=== PATIENT | male | born 1980 | race Caucasian/White ===

== ENCOUNTER 2019-03-02 02:55 | Inpatient (IN) | payer MEDICAID, OTHER ==
[2019-03-02] MEDS ORDERED: Metoclopramide IV* 5 MG/ML 2 ML VIAL IV SLOW PU ONE (04:37)
[2019-03-02] MEDS ORDERED: HYDROmorphone INJ1* 1 MG/ML SYRINGE IV SLOW PU ONE ×2 (04:37→06:55)
[2019-03-02] MEDS ORDERED: NS 0.9% 1000 ML** 1,000 ML IV ONE (04:38)
[2019-03-02] MEDS ORDERED: Thiamine IV* 100 MG, Folic Acid IV* 1 MG, Multiple Vitamin IV ADULT* 10 ML in NS 0.9% 1... IV ONE (04:38)
[2019-03-02 04:57] LABS: ABS Basophils 0.1 10^3/ul (0-0.2); ABS Lymphocytes 1.1 10^3/ul (1.0-4.8); ABS Monocytes 0.8 10^3/ul (0-0.8); ABS Neutrophils 15.8 10^3/ul (1.5-7.7); Eosinophil % 0.3 %; Hematocrit 45 % (42-52); Hemoglobin 15.5 g/dL (14.0-18.0); Lymphocyte % 6.1 %; Mean Corpuscular HGB Conc 34 g/dL (31-36); Mean Corpuscular Hemoglobin 34 pg (27-31); Mean Corpuscular Volume 101 fL (80-94); Mean Platelet Volume 8.1 fL (7.4-10.4); Platelet Count 225 10^3/uL (150-450); Red Blood Count 4.51 10^6 /uL (4.18-5.48); Red Cell Distribution Width 17 % (10.5-15); White Blood Count 17.9 10^3/uL (3.5-10.8)
[2019-03-02 05:04] LABS: INR 0.99 (0.82-1.09)
[2019-03-02 05:25] LABS: Albumin 4.5 g/dL (3.2-5.2); Albumin/Globulin Ratio 1.5 (1-3); BUN/Creatinine Ratio 27.3 (8-20); C Reactive Protein 7.14 mg/L (<8.01); Calcium 9.9 mg/dL (8.6-10.3); EGFR African American 90.6 (>60); EGFR Non-African American 74.9 (>60); Globulin 3.1 g/dL (2-4); Magnesium 1.1 mg/dL (1.9-2.7); Potassium 4.1 mmol/L (3.5-5.0); Total Protein 7.6 g/dL (6.4-8.9)
[2019-03-02] MEDS ORDERED: LORazepam INJ* 2 MG/ML 1 ML VIAL IV PUSH ONE ×2 (05:44→07:48)
[2019-03-02] MEDS ORDERED: Lorazepam PYXIS KEY PRN ×3 (05:44→09:01)
[2019-03-02] MEDS ORDERED: Lorazepam PYXIS KEY ONE (05:46)
[2019-03-02] MEDS ORDERED: Iohexol 300* (CONTRAST) 10 ML SDV IV ONE (06:01)
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
--- NOTE | 2019-03-02 07:10 | ED ---
Progress - Progress Note Progress Note: Receiving sign out from Dr. Young at shift change, pending CT A/P. Pt's condition has been stable. CT A/P: Findings suggestive of acute pancreatitis. ED physician reviewed radiology report. Pt is admitted to Dr. Paredes with a final dx of pancreatitis. Re-Evaluation - Re-Evaluation First Eval Re-Evaluation Time: 07:49 Change: Unchanged Comment: Pt is mildly tremulous. Discussed CT results. Course/Dx - Course Course Of Treatment: Pt is a 38 y/o male who presents to the ED c/o abdominal pain. Pt's condition has been stable. CT A/P revealed acute pancreatitis. He will be admitted to Dr. Paredes with a final dx of pancreatitis. I discussed results with patient. The patient agrees with this plan. - Diagnoses Provider Diagnoses: Pancreatitis - Provider Notifications Discussed Care Of Patient With: Sharona Paredes Time Discussed With Above Provider: 08:08 Instructed by Provider To: Admit As Inpatient Discharge - Sign-Out/Discharge Documenting (check all that apply): Patient Departure - Admit, Receiving Sign- Out Receiving patient FROM: Lavelle Young Patient Received Moderate/Deep Sedation with Procedure: No - Discharge Plan Condition: Stable Disposition: ADMITTED TO [facility] - Billing Disposition and Condition Condition: STABLE Disposition: Admitted to [facility] - Attestation Statements Document Initiated by Vivianeibe: Yes Documenting Scribe: Edie Dunbar Provider For Whom Scribe is Documenting (Include Credential): Yadira Abreu MD Scribe Attestation: IEdie, scribed for Yadira Abreu MD on 03/02/19 at 1141. Scribe Documentation Reviewed: Yes Provider Attestation: The documentation as recorded by the Edie dias accurately reflects the service I personally performed and the decisions made by me, Yadira Abreu MD Status of Scribe Document: Viewed
[2019-03-02] MEDS ORDERED: NS 0.9% 1000 ML** 1,000 ML IV SCH (09:00)
[2019-03-02] MEDS ORDERED: Magnesium Sulf 4 GM/100 ML IV* 4,000 MG/100 ML BAG IVPB ONE (09:04)
[2019-03-02] MEDS ORDERED: Albuterol HFA INHALER* 8 gm MDI INH PRN (09:11)
[2019-03-02] MEDS ORDERED: hydrALAZINE IV* 20 MG/ML VIAL IV SLOW PU PRN (09:12)
[2019-03-02] MEDS: Pantoprazole IV* 40 MG IV SCH (10:07)
[2019-03-02] MEDS: NS 0.9% 1000 ML** 1,000 ML IV SCH ×2 (10:07→20:00)
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
[2019-03-02] MEDS: LORazepam INJ* 2 MG/ML 1 ML VIAL IV PUSH SCH ×4 (13:14→23:10)
[2019-03-02] MEDS: PROCHLORPERAZINE INJ 5 MG/ML 2 ML VIAL IV PRN ×2 (13:20→20:00)
[2019-03-02] MEDS: Morphine INJ* 2 MG/ML 1 ML SYRINGE (TWO MG - NEW SYRINGE VERSION) IV PRN ×2 (17:22→23:50)
[2019-03-03] MEDS: PROCHLORPERAZINE INJ 5 MG/ML 2 ML VIAL IV PRN (02:53)
[2019-03-03] MEDS: NS 0.9% 1000 ML** 1,000 ML IV SCH ×3 (02:56→21:39)
[2019-03-03] MEDS: LORazepam INJ* 2 MG/ML 1 ML VIAL IV PUSH SCH ×5 (04:41→22:01)
[2019-03-03 07:05] LABS: Albumin 3.4 g/dL (3.2-5.2); Calcium 7.9 mg/dL (8.6-10.3); Potassium 4.6 mmol/L (3.5-5.0)
[2019-03-03 07:11] LABS: Albumin/Globulin Ratio 1.4 (1-3); EGFR African American 118.8 (>60); EGFR Non-African American 98.2 (>60); Globulin 2.4 g/dL (2-4); Total Protein 5.8 g/dL (6.4-8.9)
[2019-03-03] MEDS: Morphine 4 MG/ML VIAL (1 ml) 4 MG/ML VIAL IV PRN ×4 (07:18→23:18)
[2019-03-03 07:26] LABS: ABS Eosinophils 0.1 10^3/ul (0-0.6); ABS Lymphocytes 0.8 10^3/ul (1.0-4.8); ABS Monocytes 1.1 10^3/ul (0-0.8); ABS Neutrophils 18.9 10^3/ul (1.5-7.7); Eosinophil % 0.3 %; Hematocrit 41 % (42-52); Hemoglobin 13.7 g/dL (14.0-18.0); Mean Corpuscular HGB Conc 34 g/dL (31-36); Mean Corpuscular Hemoglobin 34 pg (27-31); Mean Corpuscular Volume 100 fL (80-94); Mean Platelet Volume 8.2 fL (7.4-10.4); Platelet Count 120 10^3/uL (150-450); Red Blood Count 4.04 10^6 /uL (4.18-5.48); Red Cell Distribution Width 17 % (10.5-15); White Blood Count 20.9 10^3/uL (3.5-10.8)
[2019-03-03] MEDS: Pantoprazole IV* 40 MG IV SCH (09:46)
[2019-03-03] MEDS: Thiamine IV 100 MG, Folic Acid IV* 1 MG, Multiple Vitamin IV ADULT* 10 ML in NS 0.9% 10... IV SCH (09:47)
--- NOTE | 2019-03-03 16:49 | PN ---
Subjective Date of Service: 03/03/19 Interval History: Still complaining of increase abdominal pain. still requiring Ativan for withdrawal and morphine for Pain Past Medical History: Unchanged from Admission Objective Active Medications: Albuterol (Ventolin Hfa Inhaler*) 2 puff INH Q4H PRN PRN Reason: SOB/WHEEZING Hydralazine HCl (Apresoline Iv*) 5 mg IV SLOW PU Q6H PRN PRN Reason: HTN Thiamine HCl 100 mg/ Folic Acid 1 mg/ Multivitamins 10 ml / Sodium Chloride 1, 011.2 mls @ 249.013 mls/hr IV DAILY [facility] Last Admin: 03/03/19 09:47 Dose: 249.013 mls/hr Sodium Chloride (Ns 0.9% 1000 Ml) 1,000 mls @ 175 mls/hr IV PER RATE [facility] Last Admin: 03/03/19 09:47 Dose: 175 mls/hr Lorazepam (Ativan Inj*) 0.5 mg IV PUSH Q6H [facility] Last Admin: 03/03/19 15:53 Dose: 0.5 mg Lorazepam (Ativan Inj*) 0 - 3 mg IV PUSH .PER [facility] PROTOCOL [facility]; Protocol Last Admin: 03/02/19 20:00 Dose: 1.5 mg Miscellaneous (Ativan Pyxis Albarran) 1 ea N/A .ATIVAN IV ALBARRAN PRN PRN Reason: PYXIS ALBARRAN Miscellaneous (Ativan Pyxis Albarran) 1 ea N/A .ATIVAN IV ALBARRAN PRN PRN Reason: PYXIS ALBARRAN Miscellaneous (Ativan Pyxis Albarran) 1 ea N/A .ATIVAN IV ALBARRAN PRN PRN Reason: PYXIS ALBARRAN Morphine Sulfate (Morphine 4 Mg/Ml Vial (1 Ml)) 2 mg IV Q4H PRN PRN Reason: PAIN - MILD Last Admin: 03/03/19 12:26 Dose: 2 mg Pantoprazole Sodium (Protonix Iv*) 40 mg IV DAILY [facility] Last Admin: 03/03/19 09:46 Dose: 40 mg Prochlorperazine Edisylate (Compazine Inj*) 5 mg IV Q6H PRN PRN Reason: NAUSEA/VOMITING Last Admin: 03/03/19 02:53 Dose: 5 mg Vital Signs - 8 hr 03/03/19 03/03/19 03/03/19 09:05 09:47 12:26 Temperature Pulse Rate Respiratory 20 16 16 Rate Blood Pressure (mmHg) O2 Sat by Pulse Oximetry 03/03/19 03/03/19 03/03/19 13:22 15:45 15:53 Temperature 98.5 F Pulse Rate 101 Respiratory 16 18 18 Rate Blood Pressure 154/96 (mmHg) O2 Sat by Pulse 97 Oximetry Oxygen Devices in Use Now: None Appearance: awake, resting in mild to moderate distress from pain Eyes: No Scleral Icterus, - - EOMI Ears/Nose/Mouth/Throat: NL Teeth, Lips, Gums, - - dry oral mucosa Neck: NL Appearance and Movements; NL JVP, Trachea Midline Respiratory: Symmetrical Chest Expansion and Respiratory Effort, Clear to Auscultation Cardiovascular: NL Sounds; No Murmurs; No JVD, - - tacchyardia Abdominal: - - diminished bowel sounds. tender rigid Extremities: No Edema Skin: No Rash or Ulcers Neurological: Alert and Oriented x 3 Result Diagrams: 03/03/19 07:16 03/03/19 05:19 Additional Lab and Data: Lab Results 03/02/19 03/02/19 03/02/19 Range/Units 04:49 04:49 04:49 WBC 17.9 H (3.5-10.8) 10^3/uL RBC 4.51 (4.18-5.48) 10^6 /uL Hgb 15.5 (14.0-18.0) g/dL Hct 45 (42-52) % MCV 101 H (80-94) fL MCH 34 H (27-31) pg MCHC 34 (31-36) g/dL RDW 17 H (10.5-15) % Plt Count 225 (150-450) 10^3/uL MPV 8.1 (7.4-10.4) fL Neut % (Auto) 88.5 % Lymph % (Auto) 6.1 % [place] % (Auto) 4.7 % Eos % (Auto) 0.3 % Baso % (Auto) 0.4 % Absolute Neuts (auto) 15.8 H (1.5-7.7) 10^3/ul Absolute Lymphs (auto) 1.1 (1.0-4.8) 10^3/ul Absolute Monos (auto) 0.8 (0-0.8) 10^3/ul Absolute Eos (auto) 0.0 (0-0.6) 10^3/ul Absolute Basos (auto) 0.1 (0-0.2) 10^3/ul Absolute Nucleated RBC 0.0 10^3/ul Nucleated RBC % 0.0 INR (Anticoag Therapy) 0.99 (0.82-1.09) APTT 27.0 (26.0-36.3) seconds Sodium 134 L (135-145) mmol/L Potassium 4.1 (3.5-5.0) mmol/L Chloride 97 L (101-111) mmol/L Carbon Dioxide 23 (22-32) mmol/L Anion Gap 14 H (2-11) mmol/L BUN 30 H (6-24) mg/dL Creatinine 1.10 (0.67-1.17) mg/dL Est GFR ( Amer) 90.6 (>60) Est GFR (Non-Af Amer) 74.9 (>60) BUN/Creatinine Ratio 27.3 H (8-20) Glucose 118 H (70-100) mg/dL Calcium 9.9 (8.6-10.3) mg/dL Magnesium 1.1 L (1.9-2.7) mg/dL Total Bilirubin 1.00 (0.2-1.0) mg/dL AST 141 H (13-39) U/L ALT 115 H (7-52) U/L Alkaline Phosphatase 102 (34-104) U/L C-Reactive Protein 7.14 (<8.01) mg/L Total Protein 7.6 (6.4-8.9) g/dL Albumin 4.5 (3.2-5.2) g/dL Globulin 3.1 (2-4) g/dL Albumin/Globulin Ratio 1.5 (1-3) Amylase 1210 H (29-103) U/L Lipase 4741 H (11.0-82.0) U/L Assess/Plan/Problems-Billing Assessment: 38 y/o male admitted for ETOH induced pancreatitis, [facility] - Patient Problems (1) Pancreatitis Current Visit: No Status: Acute Code(s): K85.90 - ACUTE PANCREATITIS WITHOUT NECROSIS OR INFECTION, UNSP SNOMED Code(s): 82280984 Comment: - Acute due to EOTH abuse - Lipase and amylase elevated - continue to trend down - continue NS 175 ml/hr - Keep NPO (2) ETOH abuse Current Visit: No Status: Acute Code(s): F10.10 - ALCOHOL ABUSE, UNCOMPLICATED SNOMED Code(s): 28981849 Comment: - Continue [facility] protocol - patient was advised not to drink any alcohol - social work consult (3) GERD (gastroesophageal reflux disease) Current Visit: No Status: Acute Code(s): K21.9 - GASTRO-ESOPHAGEAL REFLUX DISEASE WITHOUT ESOPHAGITIS SNOMED Code(s): 519523434 Comment: - continue PPI 40 mg IV daily (4) HTN (hypertension) Current Visit: No Status: Acute Code(s): I10 - ESSENTIAL (PRIMARY) HYPERTENSION SNOMED Code(s): 45774729 Comment: - hold home lisinopril/HCTZ - blood pressure wnls. Continue to monitor - Hydralazine PRN IV (5) DVT prophylaxis Current Visit: No Status: Acute Code(s): YCO0725 - SNOMED Code(s): 879800310 Comment: - Will place on lovenox 40 mg SQ daily
[2019-03-03] MEDS: Enoxaparin(*) 40 MG/0.4 ML SYR SUBCUT SCH (17:43)
[2019-03-04] MEDS: Morphine 4 MG/ML VIAL (1 ml) 4 MG/ML VIAL IV PRN ×5 (02:34→19:35)
[2019-03-04] MEDS: LORazepam INJ* 2 MG/ML 1 ML VIAL IV PUSH SCH ×4 (03:31→15:46)
[2019-03-04] MEDS: NS 0.9% 1000 ML** 1,000 ML IV SCH ×2 (03:55→12:18)
[2019-03-04 05:37] LABS: Urine Appearance Clear; Urine Bacteria Absent (Absent); Urine Bilirubin Negative (Negative); Urine Blood Negative (Negative); Urine Color Amber; Urine Glucose Negative (Negative); Urine Ketones 1+ (Negative); Urine Nitrite Negative (Negative); Urine Protein 1+(30 mg/dL) (Negative); Urine Red Blood Cell Absent (Absent); Urine Specific Gravity 1.026 (1.010-1.030); Urine Urobilinogen Negative (Negative); Urine White Blood Cell Absent (Absent)
[2019-03-04 06:14] LABS: Hematocrit 36 % (42-52); Hemoglobin 11.9 g/dL (14.0-18.0); Mean Corpuscular HGB Conc 34 g/dL (31-36); Mean Corpuscular Hemoglobin 34 pg (27-31); Mean Corpuscular Volume 101 fL (80-94); Red Blood Count 3.53 10^6 /uL (4.18-5.48); Red Cell Distribution Width 17 % (10.5-15); White Blood Count 15.6 10^3/uL (3.5-10.8)
[2019-03-04 06:40] LABS: Albumin 2.9 g/dL (3.2-5.2); Albumin/Globulin Ratio 1.3 (1-3); BUN/Creatinine Ratio 27.5 (8-20); Calcium 7.2 mg/dL (8.6-10.3); EGFR African American 130.9 (>60); EGFR Non-African American 108.2 (>60); Globulin 2.3 g/dL (2-4); Indirect Bilirubin 0.4 mg/dL (0.3-1.0); Magnesium 1.9 mg/dL (1.9-2.7); Phosphorus 1.7 mg/dL (2.5-5.0); Potassium 3.6 mmol/L (3.5-5.0); Total Bilirubin 0.7 mg/dL (0.2-1.0); Total Protein 5.2 g/dL (6.4-8.9)
[2019-03-04 07:44] LABS: ABS Basophils 0.1 10^3/ul (0-0.2); ABS Eosinophils 0.1 10^3/ul (0-0.6); ABS Lymphocytes 0.9 10^3/ul (1.0-4.8); ABS Monocytes 0.9 10^3/ul (0-0.8); ABS Neutrophils 13.7 10^3/ul (1.5-7.7); Eosinophil % 0.3 %; Lymphocyte % 5.6 %; Mean Platelet Volume 8.7 fL (7.4-10.4); Platelet Count 97 10^3/uL (150-450)
[2019-03-04] MEDS ORDERED: Potassium Phosphate IV* 15 MMOLE in NS 0.9% 250 ML* 250 ML IVPB ONE (08:33)
[2019-03-04] MEDS: Pantoprazole IV* 40 MG IV SCH (08:34)
[2019-03-04] MEDS: Thiamine IV 100 MG, Folic Acid IV* 1 MG, Multiple Vitamin IV ADULT* 10 ML in NS 0.9% 10... IV SCH (09:51)
--- NOTE | 2019-03-04 17:15 | PN ---
Subjective Date of Service: 03/04/19 Interval History: Patient seen doing same. Still have pain and poor apetite. Pain 08/05. Past Medical History: Unchanged from Admission Objective Active Medications: Albuterol (Ventolin Hfa Inhaler*) 2 puff INH Q4H PRN PRN Reason: SOB/WHEEZING Enoxaparin Sodium (Lovenox(*)) 40 mg SUBCUT Q24H [facility] Last Admin: 03/03/19 17:43 Dose: 40 mg Hydralazine HCl (Apresoline Iv*) 5 mg IV SLOW PU Q6H PRN PRN Reason: HTN Thiamine HCl 100 mg/ Folic Acid 1 mg/ Multivitamins 10 ml / Sodium Chloride 1, 011.2 mls @ 249.013 mls/hr IV DAILY [facility] Last Admin: 03/04/19 09:51 Dose: 249.013 mls/hr Sodium Chloride (Ns 0.9% 1000 Ml) 1,000 mls @ 100 mls/hr IV PER RATE [facility] Last Admin: 03/04/19 12:18 Dose: 100 mls/hr Lorazepam (Ativan Inj*) 0.5 mg IV PUSH Q6H [facility] Last Admin: 03/04/19 15:46 Dose: 0.5 mg Lorazepam (Ativan Inj*) 0 - 3 mg IV PUSH .PER [facility] PROTOCOL [facility]; Protocol Last Admin: 03/04/19 03:31 Dose: 1.5 mg Miscellaneous (Ativan Pyxis Albarran) 1 ea N/A .ATIVAN IV ALBARRAN PRN PRN Reason: PYXIS ALBARRAN Morphine Sulfate (Morphine 4 Mg/Ml Vial (1 Ml)) 2 mg IV Q4H PRN PRN Reason: PAIN - MILD Last Admin: 03/04/19 15:46 Dose: 2 mg Pantoprazole Sodium (Protonix Iv*) 40 mg IV DAILY [facility] Last Admin: 03/04/19 08:34 Dose: 40 mg Prochlorperazine Edisylate (Compazine Inj*) 5 mg IV Q6H PRN PRN Reason: NAUSEA/VOMITING Last Admin: 03/03/19 02:53 Dose: 5 mg Vital Signs - 8 hr 03/04/19 03/04/19 03/04/19 09:20 09:23 12:16 Temperature 98.7 F Pulse Rate 110 Respiratory 20 16 18 Rate Blood Pressure 143/95 (mmHg) O2 Sat by Pulse 99 Oximetry 03/04/19 03/04/19 03/04/19 13:01 15:36 15:46 Temperature 97.6 F Pulse Rate 125 Respiratory 16 22 Rate Blood Pressure 147/92 (mmHg) O2 Sat by Pulse 96 Oximetry 03/04/19 16:31 Temperature Pulse Rate Respiratory 16 Rate Blood Pressure (mmHg) O2 Sat by Pulse Oximetry Oxygen Devices in Use Now: Nasal Cannula Appearance: Awake, alert. no acute distress Eyes: No Scleral Icterus, PERRLA Ears/Nose/Mouth/Throat: NL Teeth, Lips, Gums Neck: NL Appearance and Movements; NL JVP, Trachea Midline Respiratory: Symmetrical Chest Expansion and Respiratory Effort, Clear to Auscultation Cardiovascular: NL Sounds; No Murmurs; No JVD, RRR Abdominal: - - distended, tender, guarding voluntary Extremities: No Edema Skin: No Rash or Ulcers Neurological: Alert and Oriented x 3 Result Diagrams: 03/04/19 05:28 03/04/19 05:28 Additional Lab and Data: Lab Results 03/02/19 03/02/19 03/02/19 Range/Units 04:49 04:49 04:49 WBC 17.9 H (3.5-10.8) 10^3/uL RBC 4.51 (4.18-5.48) 10^6 /uL Hgb 15.5 (14.0-18.0) g/dL Hct 45 (42-52) % MCV 101 H (80-94) fL MCH 34 H (27-31) pg MCHC 34 (31-36) g/dL RDW 17 H (10.5-15) % Plt Count 225 (150-450) 10^3/uL MPV 8.1 (7.4-10.4) fL Neut % (Auto) 88.5 % Lymph % (Auto) 6.1 % [place] % (Auto) 4.7 % Eos % (Auto) 0.3 % Baso % (Auto) 0.4 % Absolute Neuts (auto) 15.8 H (1.5-7.7) 10^3/ul Absolute Lymphs (auto) 1.1 (1.0-4.8) 10^3/ul Absolute Monos (auto) 0.8 (0-0.8) 10^3/ul Absolute Eos (auto) 0.0 (0-0.6) 10^3/ul Absolute Basos (auto) 0.1 (0-0.2) 10^3/ul Absolute Nucleated RBC 0.0 10^3/ul Nucleated RBC % 0.0 INR (Anticoag Therapy) 0.99 (0.82-1.09) APTT 27.0 (26.0-36.3) seconds Sodium 134 L (135-145) mmol/L Potassium 4.1 (3.5-5.0) mmol/L Chloride 97 L (101-111) mmol/L Carbon Dioxide 23 (22-32) mmol/L Anion Gap 14 H (2-11) mmol/L BUN 30 H (6-24) mg/dL Creatinine 1.10 (0.67-1.17) mg/dL Est GFR ( Amer) 90.6 (>60) Est GFR (Non-Af Amer) 74.9 (>60) BUN/Creatinine Ratio 27.3 H (8-20) Glucose 118 H (70-100) mg/dL Calcium 9.9 (8.6-10.3) mg/dL Magnesium 1.1 L (1.9-2.7) mg/dL Total Bilirubin 1.00 (0.2-1.0) mg/dL AST 141 H (13-39) U/L ALT 115 H (7-52) U/L Alkaline Phosphatase 102 (34-104) U/L C-Reactive Protein 7.14 (<8.01) mg/L Total Protein 7.6 (6.4-8.9) g/dL Albumin 4.5 (3.2-5.2) g/dL Globulin 3.1 (2-4) g/dL Albumin/Globulin Ratio 1.5 (1-3) Amylase 1210 H (29-103) U/L Lipase 4741 H (11.0-82.0) U/L Assess/Plan/Problems-Billing Assessment: 38 y/o male admitted for ETOH induced pancreatitis, and ETOH [facility] - Patient Problems (1) Pancreatitis Current Visit: No Status: Acute Code(s): K85.90 - ACUTE PANCREATITIS WITHOUT NECROSIS OR INFECTION, UNSP SNOMED Code(s): 54157032 Comment: - Acute due to EOTH abuse - Lipase and amylase elevated - continue to trend down - continue NS but will decreae the rate to 100 ml/hr - I will start to clear liquid (2) ETOH abuse Current Visit: No Status: Acute Code(s): F10.10 - ALCOHOL ABUSE, UNCOMPLICATED SNOMED Code(s): 79588429 Comment: - Continue [facility] protocol - Patient was advised not to drink any alcohol - social work consult (3) GERD (gastroesophageal reflux disease) Current Visit: No Status: Acute Code(s): K21.9 - GASTRO-ESOPHAGEAL REFLUX DISEASE WITHOUT ESOPHAGITIS SNOMED Code(s): 342972042 Comment: - continue PPI 40 mg IV daily (4) HTN (hypertension) Current Visit: No Status: Acute Code(s): I10 - ESSENTIAL (PRIMARY) HYPERTENSION SNOMED Code(s): 29754584 Comment: - hold home lisinopril/HCTZ - blood pressure wnls. Continue to monitor - Hydralazine PRN IV - I will start propranolol 10 mg tid and he remains tacchycardic and BP going up. It will help his BP and his ETOH withdrawal (5) DVT prophylaxis Current Visit: No Status: Acute Code(s): XCV1538 - SNOMED Code(s): 485533556 Comment: - Will place on lovenox 40 mg SQ daily
[2019-03-04] MEDS: Enoxaparin(*) 40 MG/0.4 ML SYR SUBCUT SCH (17:35)
[2019-03-04] MEDS: Propranolol TAB* 10 MG PO SCH (23:45)
[2019-03-05] MEDS: Morphine 4 MG/ML VIAL (1 ml) 4 MG/ML VIAL IV PRN ×5 (00:20→18:27)
[2019-03-05] MEDS: LORazepam INJ* 2 MG/ML 1 ML VIAL IV PUSH SCH ×5 (00:21→23:14)
--- NOTE | 2019-03-05 05:31 | PN ---
Progress Note - Progress Note Date of Service: 03/05/19 Note: Patient spiked first temp. Will obtain bld cultures and CXR. EKG, trop and AM labs being done as well
[2019-03-05 06:05] LABS: ABS Eosinophils 0.1 10^3/ul (0-0.6); ABS Lymphocytes 0.9 10^3/ul (1.0-4.8); ABS Monocytes 1.4 10^3/ul (0-0.8); ABS Neutrophils 12.6 10^3/ul (1.5-7.7); Eosinophil % 0.5 %; Hematocrit 32 % (42-52); Hemoglobin 10.8 g/dL (14.0-18.0); Lymphocyte % 5.7 %; Mean Corpuscular HGB Conc 34 g/dL (31-36); Mean Corpuscular Hemoglobin 34 pg (27-31); Mean Corpuscular Volume 100 fL (80-94); Mean Platelet Volume 8.5 fL (7.4-10.4); Platelet Count 103 10^3/uL (150-450); Red Cell Distribution Width 17 % (10.5-15); White Blood Count 14.9 10^3/uL (3.5-10.8)
[2019-03-05 06:23] LABS: Anion Gap 6 mmol/L (2-11); BUN/Creatinine Ratio 17.3 (8-20); Blood Urea Nitrogen 13 mg/dL (6-24); CO2 Carbon Dioxide 22 mmol/L (22-32); Calcium 7.4 mg/dL (8.6-10.3); Chloride 107 mmol/L (101-111); EGFR Non-African American 116.6 (>60); Glucose 123 mg/dL (70-100); Magnesium 1.9 mg/dL (1.9-2.7); Phosphorus 1.7 mg/dL (2.5-5.0); Potassium 3.9 mmol/L (3.5-5.0); Sodium 135 mmol/L (135-145)
[2019-03-05 06:29] LABS: Troponin I 0.13 ng/mL (<0.04)
[2019-03-05] MEDS ORDERED: Nitroglycerin TAB 0.4 MG* 0.4 MG TAB SL PRN (07:02)
[2019-03-05] MEDS ORDERED: Morphine INJ* 2 MG/ML 1 ML SYRINGE (TWO MG - NEW SYRINGE VERSION) IV PRN (07:03)
--- NOTE | 2019-03-05 07:06 | PN ---
Hospitalist Progress Note Date of Service: 03/05/19 Spoke w/Genaro who reported mildly elevated troponin. Mentioned pt complained of Chest discomfort but was unclear if this was due to pancreatitic pain. CXR and troponins ordered due to fever? Will place on ASA, PRN NTG, and Morphine; O2 to maintain sats >94%. Continue to trend troponins; consider sepsis?
[2019-03-05] MEDS: NS 0.9% 1000 ML** 1,000 ML IV SCH (07:35)
[2019-03-05] MEDS ORDERED: Potassium Phosphate IV* 15 MMOLE in NS 0.9% 250 ML* 250 ML IVPB ONE (09:30)
[2019-03-05] MEDS: Pantoprazole IV* 40 MG IV SCH (09:35)
[2019-03-05] MEDS: Propranolol TAB* 10 MG PO SCH ×3 (09:38→21:01)
[2019-03-05] MEDS: Aspirin TAB* 325 MG PO SCH ×2 (09:38→09:40)
[2019-03-05] MEDS: Acetaminophen TAB* 325 MG PO PRN (09:39)
[2019-03-05] MEDS: Thiamine IV 100 MG, Folic Acid IV* 1 MG, Multiple Vitamin IV ADULT* 10 ML in NS 0.9% 10... IV SCH (12:09)
[2019-03-05] MEDS ORDERED: Furosemide IV* 10 MG/ML 2 ML VIAL (20 MG) IV ONE ×2 (13:09→20:00)
[2019-03-05] MEDS ORDERED: methylPREDNISolone 125 MG* 2 ML VIAL IV ONE (13:09)
[2019-03-05 17:32] LABS: Troponin I 0.09 ng/mL (<0.04)
--- NOTE | 2019-03-05 17:36 | PN ---
Subjective Date of Service: 03/05/19 Interval History: Patient seen this morning. he was tachycardia (Fever 102) and complaining of chest pain pressure. Trop ordered last night was positive for 0.13! Seen evaluated at bedside. He did have increase wheezing and rales 1/3 of his lung posterior lung field. He was given stat Lasix, solumedrol. nebulizer and CXR ordered stat. EKG did not show any ischemic changes. Patient re-evaluated this afternoon. He feels lot better. diuresed well. Pulse improved from 120's to 80's. CXR reviewed he does have bilateral infiltrates. He will be given another lasix 20mg due to his excessive volume resuscitation, another solumedrol 40mg IV once and will start him on levaquin to cover for nosocomial pneumonia and easy to transition to PO on discharge Past Medical History: Unchanged from Admission Objective Active Medications: Acetaminophen (Tylenol Tab*) 650 mg PO Q4H PRN PRN Reason: FEVER/PAIN Last Admin: 03/05/19 09:39 Dose: 650 mg Albuterol (Ventolin Hfa Inhaler*) 2 puff INH Q4H PRN PRN Reason: SOB/WHEEZING Last Admin: 03/05/19 04:30 Dose: 2 puff Albuterol/Ipratropium (Duoneb (Albuterol 2.5 Mg/Ipratropium 0.5 Mg)) 1 neb INH Q2H PRN PRN Reason: SOB/WHEEZING Aspirin (Aspirin Tab*) 325 mg PO DAILY [facility] Last Admin: 03/05/19 09:40 Dose: Not Given Enoxaparin Sodium (Lovenox(*)) 40 mg SUBCUT Q24H [facility] Last Admin: 03/04/19 17:35 Dose: 40 mg Furosemide (Lasix Iv*) 20 mg IV ONCE ONE Stop: 03/05/19 20:01 Hydralazine HCl (Apresoline Iv*) 5 mg IV SLOW PU Q6H PRN PRN Reason: HTN Thiamine HCl 100 mg/ Folic Acid 1 mg/ Multivitamins 10 ml / Sodium Chloride 1, 011.2 mls @ 249.013 mls/hr IV DAILY [facility] Last Admin: 03/05/19 12:09 Dose: Not Given Sodium Chloride (Ns 0.9% 1000 Ml) 1,000 mls @ 100 mls/hr IV PER RATE [facility] Last Admin: 03/05/19 07:35 Dose: 100 mls/hr Levofloxacin/Dextrose (Levaquin 750 Mg Ivpremix(*)) 750 mg in 150 mls @ 100 mls /hr IVPB Q24H [facility]; Protocol Lorazepam (Ativan Inj*) 0.5 mg IV PUSH Q6H [facility] Last Admin: 03/05/19 09:35 Dose: 0.5 mg Lorazepam (Ativan Inj*) 0 - 3 mg IV PUSH .PER [place] PROTOCOL [facility]; Protocol Last Admin: 03/04/19 03:31 Dose: 1.5 mg Methylprednisolone Sodium Succinate (Solu-Medrol 40 Mg) 40 mg IV ONCE ONE Stop: 03/05/19 20:01 Miscellaneous (Ativan Pyxis Albarran) 1 ea N/A .ATIVAN IV ALBARRAN PRN PRN Reason: PYXIS ALBARRAN Morphine Sulfate (Morphine 4 Mg/Ml Vial (1 Ml)) 2 mg IV Q4H PRN PRN Reason: PAIN - MILD Last Admin: 03/05/19 13:36 Dose: 2 mg Morphine Sulfate (Morphine Inj (Syringe))*) 0.5 mg IV Q6H PRN PRN Reason: Chest pain Nitroglycerin (Nitroglycerin Tab 0.4 Mg*) 0.4 mg SL Q5M PRN PRN Reason: ANGINA Pantoprazole Sodium (Protonix Iv*) 40 mg IV DAILY [facility] Last Admin: 03/05/19 09:35 Dose: 40 mg Prochlorperazine Edisylate (Compazine Inj*) 5 mg IV Q6H PRN PRN Reason: NAUSEA/VOMITING Last Admin: 03/03/19 02:53 Dose: 5 mg Propranolol HCl (Inderal Tab*) 10 mg PO TID [facility] Last Admin: 03/05/19 13:27 Dose: 10 mg Vital Signs - 8 hr 03/05/19 03/05/19 03/05/19 09:35 10:52 11:03 Temperature 98.9 F Pulse Rate 82 Respiratory 20 18 20 Rate Blood Pressure 111/73 (mmHg) O2 Sat by Pulse 99 Oximetry 03/05/19 03/05/19 03/05/19 12:55 13:36 15:41 Temperature 98.8 F 98.5 F Pulse Rate 80 87 Respiratory 17 20 16 Rate Blood Pressure 118/79 128/85 (mmHg) O2 Sat by Pulse 100 98 Oximetry Oxygen Devices in Use Now: Nasal Cannula Appearance: awake, alert improved. less distress Eyes: No Scleral Icterus, - - EOMI Ears/Nose/Mouth/Throat: Mucous Membranes Moist Neck: NL Appearance and Movements; NL JVP, Trachea Midline Respiratory: - - bibasilar rales and wheezing diffusely Cardiovascular: NL Sounds; No Murmurs; No JVD, - - tacchyardia, Abdominal: NL Sounds; No Tenderness; No Distention Extremities: - - no edema Neurological: Alert and Oriented x 3 Result Diagrams: 03/05/19 05:41 03/05/19 05:36 Additional Lab and Data: Lab Results 03/02/19 03/02/19 03/02/19 Range/Units 04:49 04:49 04:49 WBC 17.9 H (3.5-10.8) 10^3/uL RBC 4.51 (4.18-5.48) 10^6 /uL Hgb 15.5 (14.0-18.0) g/dL Hct 45 (42-52) % MCV 101 H (80-94) fL MCH 34 H (27-31) pg MCHC 34 (31-36) g/dL RDW 17 H (10.5-15) % Plt Count 225 (150-450) 10^3/uL MPV 8.1 (7.4-10.4) fL Neut % (Auto) 88.5 % Lymph % (Auto) 6.1 % [place] % (Auto) 4.7 % Eos % (Auto) 0.3 % Baso % (Auto) 0.4 % Absolute Neuts (auto) 15.8 H (1.5-7.7) 10^3/ul Absolute Lymphs (auto) 1.1 (1.0-4.8) 10^3/ul Absolute Monos (auto) 0.8 (0-0.8) 10^3/ul Absolute Eos (auto) 0.0 (0-0.6) 10^3/ul Absolute Basos (auto) 0.1 (0-0.2) 10^3/ul Absolute Nucleated RBC 0.0 10^3/ul Nucleated RBC % 0.0 INR (Anticoag Therapy) 0.99 (0.82-1.09) APTT 27.0 (26.0-36.3) seconds Sodium 134 L (135-145) mmol/L Potassium 4.1 (3.5-5.0) mmol/L Chloride 97 L (101-111) mmol/L Carbon Dioxide 23 (22-32) mmol/L Anion Gap 14 H (2-11) mmol/L BUN 30 H (6-24) mg/dL Creatinine 1.10 (0.67-1.17) mg/dL Est GFR ( Amer) 90.6 (>60) Est GFR (Non-Af Amer) 74.9 (>60) BUN/Creatinine Ratio 27.3 H (8-20) Glucose 118 H (70-100) mg/dL Calcium 9.9 (8.6-10.3) mg/dL Magnesium 1.1 L (1.9-2.7) mg/dL Total Bilirubin 1.00 (0.2-1.0) mg/dL AST 141 H (13-39) U/L ALT 115 H (7-52) U/L Alkaline Phosphatase 102 (34-104) U/L C-Reactive Protein 7.14 (<8.01) mg/L Total Protein 7.6 (6.4-8.9) g/dL Albumin 4.5 (3.2-5.2) g/dL Globulin 3.1 (2-4) g/dL Albumin/Globulin Ratio 1.5 (1-3) Amylase 1210 H (29-103) U/L Lipase 4741 H (11.0-82.0) U/L Assess/Plan/Problems-Billing Assessment: 38 y/o male admitted for [facility] induced pancreatitis, [facility] - Patient Problems (1) Pancreatitis Current Visit: No Status: Acute Code(s): K85.90 - ACUTE PANCREATITIS WITHOUT NECROSIS OR INFECTION, UNSP SNOMED Code(s): 08807708 Comment: - Acute due to EOTH abuse - Lipase and amylase elevated - continue to trend down - continue NS but will decrease the rate to 100 ml/hr - I will start to clear liquid (2) ETOH abuse Current Visit: No Status: Acute Code(s): F10.10 - ALCOHOL ABUSE, UNCOMPLICATED SNOMED Code(s): 98224729 Comment: - Continue [facility] protocol - Patient was advised not to drink any alcohol - social work consult (3) GERD (gastroesophageal reflux disease) Current Visit: No Status: Acute Code(s): K21.9 - GASTRO-ESOPHAGEAL REFLUX DISEASE WITHOUT ESOPHAGITIS SNOMED Code(s): 297819312 Comment: - continue PPI 40 mg IV daily (4) HTN (hypertension) Current Visit: No Status: Acute Code(s): I10 - ESSENTIAL (PRIMARY) HYPERTENSION SNOMED Code(s): 20651213 Comment: - hold home lisinopril/HCTZ - blood pressure wnls. Continue to monitor - Hydralazine PRN IV - I did start propranolol 10 mg tid. BP and pulse improved (5) Pneumonia Current Visit: Yes Status: Acute Code(s): J18.9 - PNEUMONIA, UNSPECIFIED ORGANISM SNOMED Code(s): 312730566 Comment: - CXR 03/05/19 reveals pneumoanie - I will cover for nosocomial (6) Chest pain Current Visit: Yes Status: Acute Code(s): R07.9 - CHEST PAIN, UNSPECIFIED SNOMED Code(s): 14455473 Comment: - atypical probably from his pneumoanie, pancreatitis and volume overload - Will continue with lasix two dose, solumedrol 2 dose (hx of asthma) and decrease IVF - Trop elevated due to his tacchcyardia. (7) DVT prophylaxis Current Visit: No Status: Acute Code(s): LTK2301 - SNOMED Code(s): 412952551 Comment: - Will place on lovenox 40 mg SQ daily
[2019-03-05] MEDS: Enoxaparin(*) 40 MG/0.4 ML SYR SUBCUT SCH (17:44)
[2019-03-05] MEDS ORDERED: Levofloxacin 750 MG IVPREMIX(* 750 MG/150 ML BAG IVPB SCH (18:00)
[2019-03-05] MEDS ORDERED: methylPREDNISolone SOD 40 MG* 1 ML VIAL IV ONE (20:00)
[2019-03-06 00:05] LABS: Troponin I 0.05 ng/mL (<0.04)
[2019-03-06] MEDS: LORazepam INJ* 2 MG/ML 1 ML VIAL IV PUSH SCH ×4 (04:06→21:13)
[2019-03-06] MEDS: NS 0.9% 1000 ML** 1,000 ML IV SCH (04:48)
[2019-03-06] MEDS: Morphine 4 MG/ML VIAL (1 ml) 4 MG/ML VIAL IV PRN ×4 (05:44→21:25)
[2019-03-06] MEDS: Propranolol TAB* 10 MG PO SCH ×3 (08:29→21:12)
[2019-03-06] MEDS: Aspirin TAB* 325 MG PO SCH (08:29)
[2019-03-06] MEDS: Pantoprazole IV* 40 MG IV SCH (08:29)
[2019-03-06 08:48] LABS: ABS Lymphocytes 0.7 10^3/ul (1.0-4.8); ABS Monocytes 1.3 10^3/ul (0-0.8); ABS Neutrophils 13.8 10^3/ul (1.5-7.7); Hematocrit 33 % (42-52); Hemoglobin 11.2 g/dL (14.0-18.0); Lymphocyte % 4.3 %; Mean Corpuscular HGB Conc 34 g/dL (31-36); Mean Corpuscular Hemoglobin 34 pg (27-31); Mean Corpuscular Volume 101 fL (80-94); Mean Platelet Volume 8.3 fL (7.4-10.4); Platelet Count 184 10^3/uL (150-450); Red Blood Count 3.27 10^6 /uL (4.18-5.48); Red Cell Distribution Width 17 % (10.5-15); White Blood Count 15.8 10^3/uL (3.5-10.8)
[2019-03-06] MEDS: Thiamine IV 100 MG, Folic Acid IV* 1 MG, Multiple Vitamin IV ADULT* 10 ML in NS 0.9% 10... IV SCH (08:59)
[2019-03-06 09:08] LABS: Albumin 2.9 g/dL (3.2-5.2); Albumin/Globulin Ratio 1.1 (1-3); Calcium 8.2 mg/dL (8.6-10.3); EGFR African American 127.2 (>60); EGFR Non-African American 105.1 (>60); Globulin 2.7 g/dL (2-4); Indirect Bilirubin 0.4 mg/dL (0.3-1.0); Magnesium 1.8 mg/dL (1.9-2.7); Phosphorus 2.5 mg/dL (2.5-5.0); Potassium 4.1 mmol/L (3.5-5.0); Total Bilirubin 0.7 mg/dL (0.2-1.0); Total Protein 5.6 g/dL (6.4-8.9)
[2019-03-06] MEDS: Thiamine TAB* 100 MG TAB PO SCH (13:32)
[2019-03-06] MEDS: Vitamin B Complex TAB PO SCH (13:32)
[2019-03-06] MEDS: methylPREDNISolone SOD 40 MG* 1 ML VIAL IV SCH ×2 (13:32→21:12)
[2019-03-06] MEDS: Folic Acid TAB* 1 MG PO SCH (13:32)
[2019-03-06] MEDS: Magnesium Oxide TAB* 400 MG PO SCH ×2 (13:32→21:12)
[2019-03-06] MEDS: Enoxaparin(*) 40 MG/0.4 ML SYR SUBCUT SCH (16:21)
[2019-03-06] MEDS ORDERED: NS 0.9% 1000 ML** 1,000 ML IV SCH (17:51)
--- NOTE | 2019-03-06 17:56 | PN ---
Subjective Date of Service: 03/06/19 Interval History: Patient seen today. still having increase shortness of breath and wheezing. He is able to tolerate clear liquid well. reports his abdominal is improving. no chest pain. BP softer this afternoon, I stopped his propranolol giving his wheezing and decrease morphine frequency. Past Medical History: Unchanged from Admission Objective Active Medications: Acetaminophen (Tylenol Tab*) 650 mg PO Q4H PRN PRN Reason: FEVER/PAIN Last Admin: 03/05/19 09:39 Dose: 650 mg Albuterol (Ventolin Hfa Inhaler*) 2 puff INH Q4H PRN PRN Reason: SOB/WHEEZING Last Admin: 03/05/19 04:30 Dose: 2 puff Albuterol/Ipratropium (Duoneb (Albuterol 2.5 Mg/Ipratropium 0.5 Mg)) 1 neb INH Q2H PRN PRN Reason: SOB/WHEEZING Enoxaparin Sodium (Lovenox(*)) 40 mg SUBCUT Q24H [facility] Last Admin: 03/06/19 16:21 Dose: 40 mg Folic Acid (Folvite Tab*) 1 mg PO DAILY [facility] Last Admin: 03/06/19 13:32 Dose: 1 mg Guaifenesin (Mucinex*) 600 mg PO BID [facility] Thiamine HCl 100 mg/ Folic Acid 1 mg/ Multivitamins 10 ml / Sodium Chloride 1, 011.2 mls @ 249.013 mls/hr IV DAILY [facility] Last Admin: 03/06/19 08:59 Dose: Not Given Levofloxacin/Dextrose (Levaquin 750 Mg Ivpremix(*)) 750 mg in 150 mls @ 100 mls /hr IVPB 2100 [facility]; Protocol Lorazepam (Ativan Inj*) 0.5 mg IV PUSH Q6H [facility] Last Admin: 03/06/19 16:21 Dose: 0.5 mg Lorazepam (Ativan Inj*) 0 - 3 mg IV PUSH .PER [facility] PROTOCOL [facility]; Protocol Last Admin: 03/04/19 03:31 Dose: 1.5 mg Magnesium Oxide (Magox 400 Tab*) 400 mg PO BID [facility] Last Admin: 03/06/19 13:32 Dose: 400 mg Methylprednisolone Sodium Succinate (Solu-Medrol 40 Mg) 40 mg IV Q8H [facility] Last Admin: 03/06/19 13:32 Dose: 40 mg Miscellaneous (Ativan Pyxis Albarran) 1 ea N/A .ATIVAN IV ALBARRAN PRN PRN Reason: PYXIS ALBARRAN Morphine Sulfate (Morphine 4 Mg/Ml Vial (1 Ml)) 2 mg IV Q6H PRN PRN Reason: PAIN - MILD TO MODERATE Nitroglycerin (Nitroglycerin Tab 0.4 Mg*) 0.4 mg SL Q5M PRN PRN Reason: ANGINA Pantoprazole Sodium (Protonix Iv*) 40 mg IV DAILY [facility] Last Admin: 03/06/19 08:29 Dose: 40 mg Potassium Phos/Sodium Phos (Neutra Phos 250 Mg Toni*) 250 mg PO BID [facility] Prochlorperazine Edisylate (Compazine Inj*) 5 mg IV Q6H PRN PRN Reason: NAUSEA/VOMITING Last Admin: 03/03/19 02:53 Dose: 5 mg Propranolol HCl (Inderal Tab*) 10 mg PO TID [facility] Last Admin: 03/06/19 13:32 Dose: 10 mg Thiamine HCl (Vitamin B-1 Tab*) 100 mg PO DAILY [facility] Last Admin: 03/06/19 13:32 Dose: 100 mg Vitamin B Complex/Vitamin E (B Complex-50*) 1 tab PO DAILY [facility] Last Admin: 03/06/19 13:32 Dose: 1 tab Vital Signs - 8 hr 03/06/19 03/06/19 03/06/19 10:02 10:09 11:10 Temperature 98.2 F Pulse Rate 72 Respiratory 18 19 17 Rate Blood Pressure 115/65 (mmHg) O2 Sat by Pulse 99 Oximetry 03/06/19 03/06/19 03/06/19 11:15 15:03 16:20 Temperature 98.1 F Pulse Rate 72 Respiratory 17 18 18 Rate Blood Pressure 140/96 (mmHg) O2 Sat by Pulse 99 Oximetry 03/06/19 03/06/19 16:21 17:32 Temperature 97.9 F Pulse Rate 87 Respiratory 18 16 Rate Blood Pressure 124/83 (mmHg) O2 Sat by Pulse 97 Oximetry Oxygen Devices in Use Now: None Appearance: Awake, alert. no distress Eyes: No Scleral Icterus, - - EOMI Ears/Nose/Mouth/Throat: NL Teeth, Lips, Gums, Mucous Membranes Moist Neck: NL Appearance and Movements; NL JVP, Trachea Midline Respiratory: - - expiratory wheezing. Abdominal: - - distended, but softer. positive bowel sounds Skin: No Rash or Ulcers Neurological: Alert and Oriented x 3 Result Diagrams: 03/06/19 08:24 03/06/19 08:24 Additional Lab and Data: Lab Results 03/02/19 03/02/19 03/02/19 Range/Units 04:49 04:49 04:49 WBC 17.9 H (3.5-10.8) 10^3/uL RBC 4.51 (4.18-5.48) 10^6 /uL Hgb 15.5 (14.0-18.0) g/dL Hct 45 (42-52) % MCV 101 H (80-94) fL MCH 34 H (27-31) pg MCHC 34 (31-36) g/dL RDW 17 H (10.5-15) % Plt Count 225 (150-450) 10^3/uL MPV 8.1 (7.4-10.4) fL Neut % (Auto) 88.5 % Lymph % (Auto) 6.1 % [place] % (Auto) 4.7 % Eos % (Auto) 0.3 % Baso % (Auto) 0.4 % Absolute Neuts (auto) 15.8 H (1.5-7.7) 10^3/ul Absolute Lymphs (auto) 1.1 (1.0-4.8) 10^3/ul Absolute Monos (auto) 0.8 (0-0.8) 10^3/ul Absolute Eos (auto) 0.0 (0-0.6) 10^3/ul Absolute Basos (auto) 0.1 (0-0.2) 10^3/ul Absolute Nucleated RBC 0.0 10^3/ul Nucleated RBC % 0.0 INR (Anticoag Therapy) 0.99 (0.82-1.09) APTT 27.0 (26.0-36.3) seconds Sodium 134 L (135-145) mmol/L Potassium 4.1 (3.5-5.0) mmol/L Chloride 97 L (101-111) mmol/L Carbon Dioxide 23 (22-32) mmol/L Anion Gap 14 H (2-11) mmol/L BUN 30 H (6-24) mg/dL Creatinine 1.10 (0.67-1.17) mg/dL Est GFR ( Amer) 90.6 (>60) Est GFR (Non-Af Amer) 74.9 (>60) BUN/Creatinine Ratio 27.3 H (8-20) Glucose 118 H (70-100) mg/dL Calcium 9.9 (8.6-10.3) mg/dL Magnesium 1.1 L (1.9-2.7) mg/dL Total Bilirubin 1.00 (0.2-1.0) mg/dL AST 141 H (13-39) U/L ALT 115 H (7-52) U/L Alkaline Phosphatase 102 (34-104) U/L C-Reactive Protein 7.14 (<8.01) mg/L Total Protein 7.6 (6.4-8.9) g/dL Albumin 4.5 (3.2-5.2) g/dL Globulin 3.1 (2-4) g/dL Albumin/Globulin Ratio 1.5 (1-3) Amylase 1210 H (29-103) U/L Lipase 4741 H (11.0-82.0) U/L Microbiology and Other Data: Microbiology 03/05/19 05:41 Aerobic Blood Culture - Preliminary Blood Venous No Growth Day 1 Anaerobic Blood Culture - Preliminary No Growth Day 1 03/05/19 05:41 Aerobic Blood Culture - Preliminary Blood Venous No Growth Day 1 Anaerobic Blood Culture - Preliminary No Growth Day 1 Assess/Plan/Problems-Billing Assessment: 38 y/o male admitted for ETOH induced pancreatitis, and ETOH [facility] - Patient Problems (1) Pancreatitis Current Visit: No Status: Acute Code(s): K85.90 - ACUTE PANCREATITIS WITHOUT NECROSIS OR INFECTION, UNSP SNOMED Code(s): 27716153 Comment: - Acute due to EOTH abuse - Lipase and amylase elevated - continue to trend down - continue NS but will decrease the rate to 75 ml/hr - I will advance from clear to full liquid (2) ETOH abuse Current Visit: No Status: Acute Code(s): F10.10 - ALCOHOL ABUSE, UNCOMPLICATED SNOMED Code(s): 94470175 Comment: - Continue [facility] protocol - Patient was advised not to drink any alcohol - social work consult (3) GERD (gastroesophageal reflux disease) Current Visit: No Status: Acute Code(s): K21.9 - GASTRO-ESOPHAGEAL REFLUX DISEASE WITHOUT ESOPHAGITIS SNOMED Code(s): 340133165 Comment: - continue PPI 40 mg IV daily (4) HTN (hypertension) Current Visit: No Status: Acute Code(s): I10 - ESSENTIAL (PRIMARY) HYPERTENSION SNOMED Code(s): 21197432 Comment: - hold home lisinopril/HCTZ - blood pressure wnls. Continue to monitor - Hydralazine PRN IV will discontinue as his BP softer this afternoon - I will stop his propranolol as he is wheezing and his BP softer this afternoon (5) Pneumonia Current Visit: Yes Status: Acute Code(s): J18.9 - PNEUMONIA, UNSPECIFIED ORGANISM SNOMED Code(s): 018012852 Comment: - CXR 03/05/19 reveals pneumoanie - I will cover for nosocomial levaquin 750 mg IV daily Day # 2 (6) Chest pain Current Visit: Yes Status: Acute Code(s): R07.9 - CHEST PAIN, UNSPECIFIED SNOMED Code(s): 83645738 Comment: - atypical probably from his pneumoanie, pancreatitis and volume overload - Will continue with lasix two dose, solumedrol 2 dose (hx of asthma) and decrease IVF - Trop elevated due to his tacchcyardia. (7) DVT prophylaxis Current Visit: No Status: Acute Code(s): BAW5616 - SNOMED Code(s): 812957722 Comment: - Will place on lovenox 40 mg SQ daily
[2019-03-06] MEDS: Potassium & Sodium Phos 250MG* = 1 PACKET PO SCH (21:12)
[2019-03-06] MEDS: Levofloxacin 750 MG IVPREMIX(* 750 MG/150 ML BAG IVPB SCH (21:12)
[2019-03-06] MEDS: guaiFENesin ER TAB 600 MG PO SCH (21:13)
[2019-03-06] MEDS: Acetaminophen TAB* 325 MG PO PRN (21:24)
[2019-03-06] MEDS: Albuterol/Ipratropium NEB.SOL* Albuterol 2.5 MG/Ipratropium 0.5 MG 3 ML INH PRN (21:54)
[2019-03-07] MEDS: LORazepam INJ* 2 MG/ML 1 ML VIAL IV PUSH SCH ×4 (04:39→11:54)
[2019-03-07] MEDS: methylPREDNISolone SOD 40 MG* 1 ML VIAL IV SCH ×2 (05:43→15:24)
[2019-03-07] MEDS: Morphine 4 MG/ML VIAL (1 ml) 4 MG/ML VIAL IV PRN ×2 (05:52→11:55)
[2019-03-07] MEDS: guaiFENesin ER TAB 600 MG PO SCH (08:40)
[2019-03-07] MEDS: Thiamine TAB* 100 MG TAB PO SCH (08:40)
[2019-03-07] MEDS: Propranolol TAB* 10 MG PO SCH ×2 (08:40→15:24)
[2019-03-07] MEDS: Magnesium Oxide TAB* 400 MG PO SCH (08:41)
[2019-03-07] MEDS: Potassium & Sodium Phos 250MG* = 1 PACKET PO SCH (08:41)
[2019-03-07] MEDS: Pantoprazole IV* 40 MG IV SCH (08:41)
[2019-03-07] MEDS: Folic Acid TAB* 1 MG PO SCH (08:41)
[2019-03-07] MEDS: Vitamin B Complex TAB PO SCH (08:41)
[2019-03-07 11:16] LABS: BUN/Creatinine Ratio 26.7 (8-20); Calcium 8.2 mg/dL (8.6-10.3); EGFR Non-African American 116.6 (>60); Magnesium 1.4 mg/dL (1.9-2.7); Phosphorus 2.3 mg/dL (2.5-5.0)
[2019-03-07] MEDS ORDERED: Magnesium Sulfate 2 GM IV* 2 GM/50 ML BAG IVPB ONE (14:41)
--- NOTE | 2019-03-07 15:30 | PN ---
Subjective Date of Service: 03/07/19 Interval History: Pt feels very swollen: c/o increase in abd girth, leg edema. Tolerating full liquids.S till has mild epigastric pain Past Medical History: Unchanged from Admission Objective Active Medications: Acetaminophen (Tylenol Tab*) 650 mg PO Q4H PRN PRN Reason: FEVER/PAIN Last Admin: 03/06/19 21:24 Dose: 650 mg Albuterol (Ventolin Hfa Inhaler*) 2 puff INH Q4H PRN PRN Reason: SOB/WHEEZING Last Admin: 03/05/19 04:30 Dose: 2 puff Albuterol/Ipratropium (Duoneb (Albuterol 2.5 Mg/Ipratropium 0.5 Mg)) 1 neb INH Q2H PRN PRN Reason: SOB/WHEEZING Last Admin: 03/06/19 21:54 Dose: 1 neb Enoxaparin Sodium (Lovenox(*)) 40 mg SUBCUT Q24H [facility] Last Admin: 03/06/19 16:21 Dose: 40 mg Folic Acid (Folvite Tab*) 1 mg PO DAILY [facility] Last Admin: 03/07/19 08:41 Dose: 1 mg Furosemide (Lasix Iv*) 40 mg IV DAILY [facility] Guaifenesin (Mucinex*) 600 mg PO BID [facility] Last Admin: 03/07/19 08:40 Dose: 600 mg Levofloxacin/Dextrose (Levaquin 750 Mg Ivpremix(*)) 750 mg in 150 mls @ 100 mls /hr IVPB 2100 [facility]; Protocol Last Admin: 03/06/19 21:12 Dose: 100 mls/hr Sodium Chloride (Ns 0.9% 1000 Ml) 1,000 mls @ 75 mls/hr IV PER RATE [facility] Last Admin: 03/07/19 10:41 Dose: 75 mls/hr Magnesium Sulfate (Magnesium Sulfate 2 Gm Iv*) 2 gm in 50 mls @ 50 mls/hr IVPB ONCE ONE Stop: 03/07/19 15:40 Last Admin: 03/07/19 15:24 Dose: 50 mls/hr Lorazepam (Ativan Inj*) 0.5 mg IV PUSH Q6H [facility] Last Admin: 03/07/19 11:54 Dose: 0.5 mg Lorazepam (Ativan Inj*) 0 - 3 mg IV PUSH .PER [place] PROTOCOL [facility]; Protocol Last Admin: 03/04/19 03:31 Dose: 1.5 mg Magnesium Oxide (Magox 400 Tab*) 400 mg PO BID [facility] Last Admin: 03/07/19 08:41 Dose: 400 mg Methylprednisolone Sodium Succinate (Solu-Medrol 40 Mg) 40 mg IV Q8H [facility] Last Admin: 03/07/19 15:24 Dose: 40 mg Miscellaneous (Ativan Pyxis Albarran) 1 ea N/A .ATIVAN IV ALBARRAN PRN PRN Reason: PYXIS [place]ARRAN Morphine Sulfate (Morphine 4 Mg/Ml Vial (1 Ml)) 2 mg IV Q6H PRN PRN Reason: PAIN - MILD TO MODERATE Last Admin: 03/07/19 11:55 Dose: 2 mg Nitroglycerin (Nitroglycerin Tab 0.4 Mg*) 0.4 mg SL Q5M PRN PRN Reason: ANGINA Pantoprazole Sodium (Protonix Iv*) 40 mg IV DAILY [facility] Last Admin: 03/07/19 08:41 Dose: 40 mg Potassium Phos/Sodium Phos (Neutra Phos 250 Mg Toni*) 250 mg PO BID [facility] Last Admin: 03/07/19 08:41 Dose: 250 mg Prochlorperazine Edisylate (Compazine Inj*) 5 mg IV Q6H PRN PRN Reason: NAUSEA/VOMITING Last Admin: 03/03/19 02:53 Dose: 5 mg Propranolol HCl (Inderal Tab*) 10 mg PO TID [facility] Last Admin: 03/07/19 15:24 Dose: 10 mg Thiamine HCl (Vitamin B-1 Tab*) 100 mg PO DAILY [facility] Last Admin: 03/07/19 08:40 Dose: 100 mg Vitamin B Complex/Vitamin E (B Complex-50*) 1 tab PO DAILY [facility] Last Admin: 03/07/19 08:41 Dose: 1 tab Vital Signs - 8 hr 03/07/19 03/07/19 03/07/19 08:00 11:22 11:54 Temperature 97.3 F Pulse Rate 72 Respiratory 18 16 16 Rate Blood Pressure 147/99 (mmHg) O2 Sat by Pulse 95 Oximetry 03/07/19 11:55 Temperature Pulse Rate Respiratory 16 Rate Blood Pressure (mmHg) O2 Sat by Pulse Oximetry Oxygen Devices in Use Now: None Appearance: 38 yo M in nAD, aAOx3 Eyes: No Scleral Icterus, PERRLA Ears/Nose/Mouth/Throat: NL Teeth, Lips, Gums, Mucous Membranes Moist Neck: NL Appearance and Movements; NL JVP, Trachea Midline Respiratory: Symmetrical Chest Expansion and Respiratory Effort, - - crackles at b/l bases Cardiovascular: NL Sounds; No Murmurs; No JVD, RRR Abdominal: - - distended, soft, tender in epigastrium, no rebound, no guarding, BS+ Lymphatic: No Cervical Adenopathy Extremities: - - b/l pedal edema +1 Skin: No Nodules or Sclerosis Neurological: Alert and Oriented x 3, NL Muscle Strength and Tone Result Diagrams: 03/06/19 08:24 03/07/19 10:33 Additional Lab and Data: Lab Results 03/02/19 03/02/19 03/02/19 Range/Units 04:49 04:49 04:49 WBC 17.9 H (3.5-10.8) 10^3/uL RBC 4.51 (4.18-5.48) 10^6 /uL Hgb 15.5 (14.0-18.0) g/dL Hct 45 (42-52) % MCV 101 H (80-94) fL MCH 34 H (27-31) pg MCHC 34 (31-36) g/dL RDW 17 H (10.5-15) % Plt Count 225 (150-450) 10^3/uL MPV 8.1 (7.4-10.4) fL Neut % (Auto) 88.5 % Lymph % (Auto) 6.1 % [place] % (Auto) 4.7 % Eos % (Auto) 0.3 % Baso % (Auto) 0.4 % Absolute Neuts (auto) 15.8 H (1.5-7.7) 10^3/ul Absolute Lymphs (auto) 1.1 (1.0-4.8) 10^3/ul Absolute Monos (auto) 0.8 (0-0.8) 10^3/ul Absolute Eos (auto) 0.0 (0-0.6) 10^3/ul Absolute Basos (auto) 0.1 (0-0.2) 10^3/ul Absolute Nucleated RBC 0.0 10^3/ul Nucleated RBC % 0.0 INR (Anticoag Therapy) 0.99 (0.82-1.09) APTT 27.0 (26.0-36.3) seconds Sodium 134 L (135-145) mmol/L Potassium 4.1 (3.5-5.0) mmol/L Chloride 97 L (101-111) mmol/L Carbon Dioxide 23 (22-32) mmol/L Anion Gap 14 H (2-11) mmol/L BUN 30 H (6-24) mg/dL Creatinine 1.10 (0.67-1.17) mg/dL Est GFR ( Amer) 90.6 (>60) Est GFR (Non-Af Amer) 74.9 (>60) BUN/Creatinine Ratio 27.3 H (8-20) Glucose 118 H (70-100) mg/dL Calcium 9.9 (8.6-10.3) mg/dL Magnesium 1.1 L (1.9-2.7) mg/dL Total Bilirubin 1.00 (0.2-1.0) mg/dL AST 141 H (13-39) U/L ALT 115 H (7-52) U/L Alkaline Phosphatase 102 (34-104) U/L C-Reactive Protein 7.14 (<8.01) mg/L Total Protein 7.6 (6.4-8.9) g/dL Albumin 4.5 (3.2-5.2) g/dL Globulin 3.1 (2-4) g/dL Albumin/Globulin Ratio 1.5 (1-3) Amylase 1210 H (29-103) U/L Lipase 4741 H (11.0-82.0) U/L Microbiology and Other Data: Microbiology 03/05/19 05:41 Aerobic Blood Culture - Preliminary Blood Venous No Growth Day 1 Anaerobic Blood Culture - Preliminary No Growth Day 1 03/05/19 05:41 Aerobic Blood Culture - Preliminary Blood Venous No Growth Day 1 Anaerobic Blood Culture - Preliminary No Growth Day 1 Assess/Plan/Problems-Billing Assessment: 38 y/o male admitted for ETOH induced pancreatitis, and ETOH [facility] - Patient Problems (1) Pancreatitis Comment: - Acute due to EOTH abuse - I will advance to soft diet -will tx with IV Lasix today due to fluid overload (2) Pneumonia Comment: - CXR 03/05/19 reveals PNA - I will cover for nosocomial levaquin 750 mg IV daily Day # 3 (3) ETOH abuse Comment: - no symptoms of withdrawal, d/c WAM - Patient was advised not to drink any alcohol - social work consult (4) GERD (gastroesophageal reflux disease) Comment: place on PPI BID PO (5) HTN (hypertension) Comment: - restarting home lisinopril/HCTZ - blood pressure wnls. (6) DVT prophylaxis Comment: lovenox 40 mg SQ daily Status and Disposition: inpatient
[2019-03-07] MEDS: Furosemide IV* 10 MG/ML VIAL (40 MG) IV SCH (15:36)
[2019-03-07] MEDS: oxyCODONE TAB* 5 MG TAB PO PRN (17:47)
[2019-03-07] MEDS: LORazepam TAB(*) 0.5 MG PO PRN (17:47)
[2019-03-07] MEDS: Enoxaparin(*) 40 MG/0.4 ML SYR SUBCUT SCH (17:47)
[2019-03-07] MEDS ORDERED: LORazepam INJ* 2 MG/ML 1 ML VIAL IV PUSH SCH (18:00)
[2019-03-07] MEDS: Levofloxacin 750 MG IVPREMIX(* 750 MG/150 ML BAG IVPB SCH (22:12)
[2019-03-08] MEDS: Potassium & Sodium Phos 250MG* = 1 PACKET PO SCH ×3 (00:24→21:15)
[2019-03-08] MEDS: LORazepam TAB(*) 0.5 MG PO PRN ×2 (00:25→21:13)
[2019-03-08] MEDS: Magnesium Oxide TAB* 400 MG PO SCH ×3 (00:26→21:15)
[2019-03-08] MEDS: Pantoprazole TAB * 40 MG TAB PO SCH ×3 (00:27→21:15)
[2019-03-08] MEDS: oxyCODONE TAB* 5 MG TAB PO PRN (00:29)
[2019-03-08] MEDS: PROCHLORPERAZINE INJ 5 MG/ML 2 ML VIAL IV PRN ×2 (04:19→12:46)
[2019-03-08] MEDS: Albuterol/Ipratropium NEB.SOL* Albuterol 2.5 MG/Ipratropium 0.5 MG 3 ML INH PRN (04:23)
[2019-03-08] MEDS ORDERED: HYDROmorphone INJ1* 1 MG/ML SYRINGE IV SLOW PU ONE (04:36)
[2019-03-08 07:34] LABS: Hematocrit 36 % (42-52); Hemoglobin 12.1 g/dL (14.0-18.0); Mean Corpuscular HGB Conc 34 g/dL (31-36); Mean Corpuscular Hemoglobin 34 pg (27-31); Mean Corpuscular Volume 99 fL (80-94); Mean Platelet Volume 8.1 fL (7.4-10.4); Platelet Count 319 10^3/uL (150-450); Red Blood Count 3.61 10^6 /uL (4.18-5.48); Red Cell Distribution Width 17 % (10.5-15); White Blood Count 17.2 10^3/uL (3.5-10.8)
[2019-03-08 07:47] LABS: Albumin 2.7 g/dL (3.2-5.2); Albumin/Globulin Ratio 1.2 (1-3); BUN/Creatinine Ratio 20.2 (8-20); EGFR African American 115.8 (>60); EGFR Non-African American 95.7 (>60); Globulin 2.3 g/dL (2-4); Magnesium 1.4 mg/dL (1.9-2.7); Potassium 3.5 mmol/L (3.5-5.0); Total Bilirubin 0.4 mg/dL (0.2-1.0)
[2019-03-08] MEDS: Acetaminophen TAB* 325 MG PO PRN ×2 (07:55→15:43)
[2019-03-08] MEDS: Furosemide IV* 10 MG/ML VIAL (40 MG) IV SCH (07:58)
[2019-03-08] MEDS ORDERED: Magnesium Sulf 4 GM/100 ML IV* 4,000 MG/100 ML BAG IVPB ONE (08:18)
[2019-03-08 08:32] LABS: ABS Lymphocytes 1.7 10^3/ul (1.0-4.8); ABS Monocytes 1.9 10^3/ul (0-0.8); ABS Neutrophils 13.5 10^3/ul (1.5-7.7); Eosinophil % 0.2 %; Lymphocyte % 9.6 %; Nucleated Red Blood Cells % 0.1
[2019-03-08] MEDS: Hydrochlorothiazide TAB* 25 MG PO SCH (10:26)
[2019-03-08] MEDS: Vitamin B Complex TAB PO SCH (10:26)
[2019-03-08] MEDS: Folic Acid TAB* 1 MG PO SCH (10:26)
[2019-03-08] MEDS: Thiamine TAB* 100 MG TAB PO SCH (10:26)
[2019-03-08] MEDS: Lisinopril TAB* 10 MG PO SCH (10:26)
--- NOTE | 2019-03-08 11:03 | PN ---
Subjective Date of Service: 03/08/19 Interval History: Pt had gotten very SOB last night. Developed LUQ and epigastric pain later after soft dinner last night and fever>101 this AM. Past Medical History: Unchanged from Admission Objective Active Medications: Acetaminophen (Tylenol Tab*) 650 mg PO Q4H PRN PRN Reason: FEVER/PAIN Last Admin: 03/08/19 07:55 Dose: 650 mg Albuterol (Ventolin Hfa Inhaler*) 2 puff INH Q4H PRN PRN Reason: SOB/WHEEZING Last Admin: 03/05/19 04:30 Dose: 2 puff Albuterol/Ipratropium (Duoneb (Albuterol 2.5 Mg/Ipratropium 0.5 Mg)) 1 neb INH Q2H PRN PRN Reason: SOB/WHEEZING Last Admin: 03/08/19 04:23 Dose: 1 neb Enoxaparin Sodium (Lovenox(*)) 40 mg SUBCUT Q24H [facility] Last Admin: 03/07/19 17:47 Dose: 40 mg Folic Acid (Folvite Tab*) 1 mg PO DAILY [facility] Last Admin: 03/08/19 10:26 Dose: 1 mg Furosemide (Lasix Iv*) 40 mg IV DAILY [facility] Last Admin: 03/08/19 07:58 Dose: 40 mg Hydrochlorothiazide (Hydrodiuril Tab*) 25 mg PO DAILY [facility] Last Admin: 03/08/19 10:26 Dose: 25 mg Levofloxacin/Dextrose (Levaquin 750 Mg Ivpremix(*)) 750 mg in 150 mls @ 100 mls /hr IVPB 2100 [facility]; Protocol Last Admin: 03/07/19 22:12 Dose: 100 mls/hr Magnesium Sulfate (Magnesium Sulf 4 Gm/100 Ml Iv*) 4,000 mg in 100 mls @ 33.333 mls/hr IVPB ONCE ONE Stop: 03/08/19 11:17 Last Admin: 03/08/19 10:29 Dose: 33.333 mls/hr Lisinopril (Prinivil Tab*) 40 mg PO DAILY [facility] Last Admin: 03/08/19 10:26 Dose: 40 mg Lorazepam (Ativan Tab(*)) 0.5 mg PO Q6H PRN PRN Reason: ANXIETY Last Admin: 03/08/19 00:25 Dose: 0.5 mg Magnesium Oxide (Magox 400 Tab*) 400 mg PO BID [facility] Last Admin: 03/08/19 10:27 Dose: 400 mg Oxycodone HCl (Roxycodone Tab*) 5 mg PO Q6H PRN PRN Reason: PAIN Last Admin: 03/08/19 00:29 Dose: 5 mg Pantoprazole Sodium (Protonix Tab*) 40 mg PO BID [facility] Last Admin: 03/08/19 10:26 Dose: 40 mg Potassium Phos/Sodium Phos (Neutra Phos 250 Mg Toni*) 250 mg PO BID [facility] Last Admin: 03/08/19 10:27 Dose: 250 mg Prochlorperazine Edisylate (Compazine Inj*) 5 mg IV Q6H PRN PRN Reason: NAUSEA/VOMITING Last Admin: 03/08/19 04:19 Dose: 5 mg Thiamine HCl (Vitamin B-1 Tab*) 100 mg PO DAILY [facility] Last Admin: 03/08/19 10:26 Dose: 100 mg Vitamin B Complex/Vitamin E (B Complex-50*) 1 tab PO DAILY [facility] Last Admin: 03/08/19 10:26 Dose: 1 tab Vital Signs - 8 hr 03/08/19 03/08/19 03/08/19 04:11 04:23 05:02 Temperature 98.7 F Pulse Rate 113 116 Respiratory 24 20 20 Rate Blood Pressure 157/99 (mmHg) O2 Sat by Pulse 92 96 Oximetry 03/08/19 03/08/19 06:05 07:28 Temperature 101.1 F Pulse Rate 98 Respiratory 16 18 Rate Blood Pressure 134/90 (mmHg) O2 Sat by Pulse 90 Oximetry Oxygen Devices in Use Now: None Appearance: 38 yo M in nAD, aAOx3 Eyes: No Scleral Icterus, PERRLA Ears/Nose/Mouth/Throat: NL Teeth, Lips, Gums, Mucous Membranes Moist Neck: NL Appearance and Movements; NL JVP, Trachea Midline Respiratory: Symmetrical Chest Expansion and Respiratory Effort, - - crackles at b/l bases Cardiovascular: NL Sounds; No Murmurs; No JVD, RRR Abdominal: - - soft, less distended c/w yesterday, BS+, epigastic and LUQ tenderness present, no rebound, no guarding Extremities: No Clubbing, Cyanosis, - - + 1 pitting edema b/l Skin: No Rash or Ulcers, No Nodules or Sclerosis Neurological: Alert and Oriented x 3, NL Muscle Strength and Tone Result Diagrams: 03/08/19 06:59 03/08/19 06:59 Additional Lab and Data: Lab Results 03/02/19 03/02/19 03/02/19 Range/Units 04:49 04:49 04:49 WBC 17.9 H (3.5-10.8) 10^3/uL RBC 4.51 (4.18-5.48) 10^6 /uL Hgb 15.5 (14.0-18.0) g/dL Hct 45 (42-52) % MCV 101 H (80-94) fL MCH 34 H (27-31) pg MCHC 34 (31-36) g/dL RDW 17 H (10.5-15) % Plt Count 225 (150-450) 10^3/uL MPV 8.1 (7.4-10.4) fL Neut % (Auto) 88.5 % Lymph % (Auto) 6.1 % [place] % (Auto) 4.7 % Eos % (Auto) 0.3 % Baso % (Auto) 0.4 % Absolute Neuts (auto) 15.8 H (1.5-7.7) 10^3/ul Absolute Lymphs (auto) 1.1 (1.0-4.8) 10^3/ul Absolute Monos (auto) 0.8 (0-0.8) 10^3/ul Absolute Eos (auto) 0.0 (0-0.6) 10^3/ul Absolute Basos (auto) 0.1 (0-0.2) 10^3/ul Absolute Nucleated RBC 0.0 10^3/ul Nucleated RBC % 0.0 INR (Anticoag Therapy) 0.99 (0.82-1.09) APTT 27.0 (26.0-36.3) seconds Sodium 134 L (135-145) mmol/L Potassium 4.1 (3.5-5.0) mmol/L Chloride 97 L (101-111) mmol/L Carbon Dioxide 23 (22-32) mmol/L Anion Gap 14 H (2-11) mmol/L BUN 30 H (6-24) mg/dL Creatinine 1.10 (0.67-1.17) mg/dL Est GFR ( Amer) 90.6 (>60) Est GFR (Non-Af Amer) 74.9 (>60) BUN/Creatinine Ratio 27.3 H (8-20) Glucose 118 H (70-100) mg/dL Calcium 9.9 (8.6-10.3) mg/dL Magnesium 1.1 L (1.9-2.7) mg/dL Total Bilirubin 1.00 (0.2-1.0) mg/dL AST 141 H (13-39) U/L ALT 115 H (7-52) U/L Alkaline Phosphatase 102 (34-104) U/L C-Reactive Protein 7.14 (<8.01) mg/L Total Protein 7.6 (6.4-8.9) g/dL Albumin 4.5 (3.2-5.2) g/dL Globulin 3.1 (2-4) g/dL Albumin/Globulin Ratio 1.5 (1-3) Amylase 1210 H (29-103) U/L Lipase 4741 H (11.0-82.0) U/L Microbiology and Other Data: Microbiology 03/05/19 05:41 Aerobic Blood Culture - Preliminary Blood Venous No Growth Day 1 Anaerobic Blood Culture - Preliminary No Growth Day 1 03/05/19 05:41 Aerobic Blood Culture - Preliminary Blood Venous No Growth Day 1 Anaerobic Blood Culture - Preliminary No Growth Day 1 Assess/Plan/Problems-Billing Assessment: 38 y/o male admitted for ETOH induced pancreatitis, and ETOH wihdrawal - Patient Problems (1) Pancreatitis Comment: - Acute due to EOTH abuse - when diet advanced to soft pt developed more abd pain, will change back to full liquids -will tx with IV Lasix today due to fluid overload (gained 10 lbs since admission) -worrisome that pt got febrile an dhas more pain,. will get repeat CT and CRP (2) Pneumonia Comment: - CXR 03/05/19 reveals PNA - cont levaquin 750 mg IV daily Day # 4 (3) ETOH abuse Comment: - no symptoms of withdrawal, d/c'd WAM - Patient was advised not to drink any alcohol - social work consult (4) GERD (gastroesophageal reflux disease) Comment: place on PPI BID PO (5) HTN (hypertension) Comment: - restarted home lisinopril/HCTZ - blood pressure wnls. (6) DVT prophylaxis Comment: lovenox 40 mg SQ daily (7) Fluid overload Comment: pt gained 10 lbs of wt during hosp stay. cont IV Lasix daily Status and Disposition: inpatient
[2019-03-08 11:31] LABS: C Reactive Protein 73.41 mg/L (<8.01)
[2019-03-08] MEDS: Morphine INJ* 2 MG/ML 1 ML SYRINGE (TWO MG - NEW SYRINGE VERSION) IV PRN ×3 (12:46→21:24)
[2019-03-08] MEDS ORDERED: Iohexol 300* (CONTRAST) 10 ML SDV IV ONE (14:37)
[2019-03-08] MEDS ORDERED: Potassium Chloride LIQUID* 20 MEQ PACKET PO ONE (15:36)
[2019-03-08] MEDS ORDERED: Potassium Chloride* LIQUID 20 MEQ/15 ML UDC PO ONE (16:30)
[2019-03-08] MEDS: Enoxaparin(*) 40 MG/0.4 ML SYR SUBCUT SCH (17:12)
[2019-03-08] MEDS: Levofloxacin 750 MG IVPREMIX(* 750 MG/150 ML BAG IVPB SCH (21:16)
[2019-03-09] MEDS: Acetaminophen TAB* 325 MG PO PRN ×3 (00:23→22:19)
[2019-03-09 06:46] LABS: Hematocrit 36 % (42-52); Hemoglobin 12.2 g/dL (14.0-18.0); Mean Corpuscular HGB Conc 34 g/dL (31-36); Mean Corpuscular Hemoglobin 34 pg (27-31); Mean Corpuscular Volume 99 fL (80-94); Mean Platelet Volume 7.9 fL (7.4-10.4); Platelet Count 371 10^3/uL (150-450); Red Cell Distribution Width 17 % (10.5-15); White Blood Count 22.2 10^3/uL (3.5-10.8)
[2019-03-09 06:47] LABS: ABS Basophils 0.1 10^3/ul (0-0.2); ABS Eosinophils 0.2 10^3/ul (0-0.6); ABS Lymphocytes 1.8 10^3/ul (1.0-4.8); ABS Monocytes 1.9 10^3/ul (0-0.8); ABS Neutrophils 18.3 10^3/ul (1.5-7.7); Eosinophil % 0.7 %; Nucleated Red Blood Cells % 0.1
[2019-03-09 07:02] LABS: BUN/Creatinine Ratio 12.2 (8-20); Calcium 8.8 mg/dL (8.6-10.3); EGFR African American 114.3 (>60); EGFR Non-African American 94.4 (>60); Magnesium 1.7 mg/dL (1.9-2.7); Potassium 3.7 mmol/L (3.5-5.0)
[2019-03-09] MEDS: Morphine INJ* 2 MG/ML 1 ML SYRINGE (TWO MG - NEW SYRINGE VERSION) IV PRN ×4 (07:45→21:49)
[2019-03-09] MEDS: LORazepam TAB(*) 0.5 MG PO PRN (07:49)
[2019-03-09] MEDS: Lisinopril TAB* 10 MG PO SCH (07:49)
[2019-03-09] MEDS: Folic Acid TAB* 1 MG PO SCH (07:50)
[2019-03-09] MEDS: Hydrochlorothiazide TAB* 25 MG PO SCH (07:50)
[2019-03-09] MEDS: Pantoprazole TAB * 40 MG TAB PO SCH (07:50)
[2019-03-09] MEDS: Furosemide IV* 10 MG/ML VIAL (40 MG) IV SCH (07:51)
[2019-03-09] MEDS: Magnesium Oxide TAB* 400 MG PO SCH ×2 (07:51→21:44)
[2019-03-09] MEDS: Vitamin B Complex TAB PO SCH (07:51)
[2019-03-09] MEDS: Thiamine TAB* 100 MG TAB PO SCH (07:51)
[2019-03-09] MEDS: Potassium & Sodium Phos 250MG* = 1 PACKET PO SCH ×2 (12:11→21:55)
--- NOTE | 2019-03-09 15:58 | PN ---
Subjective Date of Service: 03/09/19 Interval History: Tmax 101.2 F overnight. During fever had chills and night sweats. Otherwise, pt reporting improvement in symptoms. States his abdominal pain in slightly better, appetite is improved - ate full lunch of regular (low fat) food and also went to vending machine. Has been walking around the floor a lot - has some BEST and fatigue but quickly improves with rest. Is s/p furosemide IV x 5 doses. Will stop today given improvement on CXR and cont home HCTZ. Consulting ID for FUO. May have drug fever from [facility]. Past Medical History: Unchanged from Admission Objective Active Medications: Acetaminophen (Tylenol Tab*) 650 mg PO Q4H PRN PRN Reason: FEVER/PAIN Last Admin: 03/09/19 12:16 Dose: 650 mg Albuterol (Ventolin Hfa Inhaler*) 2 puff INH Q4H PRN PRN Reason: SOB/WHEEZING Last Admin: 03/05/19 04:30 Dose: 2 puff Amoxicillin/Clavulanate Potassium (Augmentin Tab*) 875 mg PO BID [facility] Enoxaparin Sodium (Lovenox(*)) 40 mg SUBCUT Q24H [facility] Last Admin: 03/08/19 17:12 Dose: 40 mg Folic Acid (Folvite Tab*) 1 mg PO DAILY [facility] Last Admin: 03/09/19 07:50 Dose: 1 mg Hydrochlorothiazide (Hydrodiuril Tab*) 25 mg PO DAILY [facility] Last Admin: 03/09/19 07:50 Dose: 25 mg Lisinopril (Prinivil Tab*) 40 mg PO DAILY [facility] Last Admin: 03/09/19 07:49 Dose: 40 mg Magnesium Oxide (Magox 400 Tab*) 400 mg PO BID [facility] Last Admin: 03/09/19 07:51 Dose: 400 mg Morphine Sulfate (Morphine Inj (Syringe))*) 2 mg IV Q2H PRN PRN Reason: PAIN Last Admin: 03/09/19 12:12 Dose: 2 mg Pantoprazole Sodium (Protonix Tab*) 40 mg PO DAILY [facility] Potassium Phos/Sodium Phos (Neutra Phos 250 Mg Toni*) 250 mg PO BID [facility] Last Admin: 03/09/19 12:11 Dose: 250 mg Prochlorperazine Edisylate (Compazine Inj*) 5 mg IV Q6H PRN PRN Reason: NAUSEA/VOMITING Last Admin: 03/08/19 12:46 Dose: 5 mg Thiamine HCl (Vitamin B-1 Tab*) 100 mg PO DAILY [facility] Last Admin: 03/09/19 07:51 Dose: 100 mg Vitamin B Complex/Vitamin E (B Complex-50*) 1 tab PO DAILY [facility] Last Admin: 03/09/19 07:51 Dose: 1 tab Vital Signs - 8 hr 03/09/19 03/09/19 03/09/19 08:00 11:15 12:12 Temperature 99.6 F Pulse Rate 98 Respiratory 18 19 18 Rate Blood Pressure 117/70 (mmHg) O2 Sat by Pulse 92 Oximetry 03/09/19 12:40 Temperature Pulse Rate Respiratory 18 Rate Blood Pressure (mmHg) O2 Sat by Pulse Oximetry Oxygen Devices in Use Now: None Appearance: well appearing, NAD Ears/Nose/Mouth/Throat: Clear Oropharnyx, Mucous Membranes Moist Neck: NL Appearance and Movements; NL JVP Respiratory: Clear to Auscultation Cardiovascular: RRR Abdominal: - - mild ttp over epigastrum, no guarding/rebound Lymphatic: No Cervical Adenopathy Extremities: - - trace edema over ankles b/l Skin: No Rash or Ulcers Neurological: Alert and Oriented x 3, NL Gait Result Diagrams: 03/09/19 06:29 03/09/19 06:29 Additional Lab and Data: Lab Results 03/02/19 03/02/19 03/02/19 Range/Units 04:49 04:49 04:49 WBC 17.9 H (3.5-10.8) 10^3/uL RBC 4.51 (4.18-5.48) 10^6 /uL Hgb 15.5 (14.0-18.0) g/dL Hct 45 (42-52) % MCV 101 H (80-94) fL MCH 34 H (27-31) pg MCHC 34 (31-36) g/dL RDW 17 H (10.5-15) % Plt Count 225 (150-450) 10^3/uL MPV 8.1 (7.4-10.4) fL Neut % (Auto) 88.5 % Lymph % (Auto) 6.1 % [place] % (Auto) 4.7 % Eos % (Auto) 0.3 % Baso % (Auto) 0.4 % Absolute Neuts (auto) 15.8 H (1.5-7.7) 10^3/ul Absolute Lymphs (auto) 1.1 (1.0-4.8) 10^3/ul Absolute Monos (auto) 0.8 (0-0.8) 10^3/ul Absolute Eos (auto) 0.0 (0-0.6) 10^3/ul Absolute Basos (auto) 0.1 (0-0.2) 10^3/ul Absolute Nucleated RBC 0.0 10^3/ul Nucleated RBC % 0.0 INR (Anticoag Therapy) 0.99 (0.82-1.09) APTT 27.0 (26.0-36.3) seconds Sodium 134 L (135-145) mmol/L Potassium 4.1 (3.5-5.0) mmol/L Chloride 97 L (101-111) mmol/L Carbon Dioxide 23 (22-32) mmol/L Anion Gap 14 H (2-11) mmol/L BUN 30 H (6-24) mg/dL Creatinine 1.10 (0.67-1.17) mg/dL Est GFR ( Amer) 90.6 (>60) Est GFR (Non-Af Amer) 74.9 (>60) BUN/Creatinine Ratio 27.3 H (8-20) Glucose 118 H (70-100) mg/dL Calcium 9.9 (8.6-10.3) mg/dL Magnesium 1.1 L (1.9-2.7) mg/dL Total Bilirubin 1.00 (0.2-1.0) mg/dL AST 141 H (13-39) U/L ALT 115 H (7-52) U/L Alkaline Phosphatase 102 (34-104) U/L C-Reactive Protein 7.14 (<8.01) mg/L Total Protein 7.6 (6.4-8.9) g/dL Albumin 4.5 (3.2-5.2) g/dL Globulin 3.1 (2-4) g/dL Albumin/Globulin Ratio 1.5 (1-3) Amylase 1210 H (29-103) U/L Lipase 4741 H (11.0-82.0) U/L Microbiology and Other Data: Microbiology 03/05/19 05:41 Aerobic Blood Culture - Preliminary Blood Venous No Growth Day 1 Anaerobic Blood Culture - Preliminary No Growth Day 1 03/05/19 05:41 Aerobic Blood Culture - Preliminary Blood Venous No Growth Day 1 Anaerobic Blood Culture - Preliminary No Growth Day 1 Assess/Plan/Problems-Billing Assessment: 38M with HTN, EtOH abuse, admitted for ETOH induced pancreatitis and wihdrawal, course c/b pleural effusions and respiratory distress from IVF for pancreatitis , then fever of unknown origin. ID following, s/p levofloxacin 5 days, switched to Augmentin for possible periodontal infection. - Patient Problems (1) Fluid overload Comment: Gained 10 lbs from IVF during hosp stay. Now near home weight of 150. Will stop Lasix IV and continue home HCTZ. (2) Pancreatitis Comment: Acute due to EOTH abuse. Now off IVF and tolerating PO. Repeat CT without evidence for complications. (3) Pneumonia Comment: Unclear if this is dx given low concern per CT. ID now following and off levaquin - could have had drug fever for this? Will continue to monitor respiratory status, exam, and labs closely. Procal ordered. (4) ETOH abuse Comment: - no symptoms of withdrawal, d/c'd WAM - Patient was advised not to drink any alcohol - social work consult (5) HTN (hypertension) Comment: - restarted home lisinopril/HCTZ - blood pressure wnls. (6) DVT prophylaxis Comment: lovenox 40 mg SQ daily Status and Disposition: inpatient
[2019-03-09] MEDS ORDERED: Magnesium Sulfate 1 GM IV* 1 GM/100 ML BAG IV ONE (16:00)
[2019-03-09] MEDS: Enoxaparin(*) 40 MG/0.4 ML SYR SUBCUT SCH (17:06)
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
[2019-03-09] MEDS: Amoxicillin/Clavulanate TAB* 875 MG PO SCH (21:43)
[2019-03-10] MEDS: Morphine INJ* 2 MG/ML 1 ML SYRINGE (TWO MG - NEW SYRINGE VERSION) IV PRN ×2 (04:28→09:16)
[2019-03-10] MEDS: Magnesium Oxide TAB* 400 MG PO SCH (07:38)
[2019-03-10] MEDS: Potassium & Sodium Phos 250MG* = 1 PACKET PO SCH (07:38)
[2019-03-10] MEDS: Lisinopril TAB* 10 MG PO SCH (07:38)
[2019-03-10] MEDS: Hydrochlorothiazide TAB* 25 MG PO SCH (07:38)
[2019-03-10] MEDS: Amoxicillin/Clavulanate TAB* 875 MG PO SCH (07:38)
[2019-03-10] MEDS: Folic Acid TAB* 1 MG PO SCH (07:38)
[2019-03-10] MEDS: Thiamine TAB* 100 MG TAB PO SCH (07:39)
[2019-03-10] MEDS: Vitamin B Complex TAB PO SCH (07:39)
[2019-03-10 07:53] LABS: Hematocrit 35 % (42-52); Hemoglobin 11.9 g/dL (14.0-18.0); Mean Corpuscular HGB Conc 34 g/dL (31-36); Mean Corpuscular Hemoglobin 33 pg (27-31); Mean Corpuscular Volume 98 fL (80-94); Mean Platelet Volume 7.9 fL (7.4-10.4); Platelet Count 420 10^3/uL (150-450); Red Blood Count 3.61 10^6 /uL (4.18-5.48); Red Cell Distribution Width 17 % (10.5-15); White Blood Count 21.7 10^3/uL (3.5-10.8)
[2019-03-10 08:00] LABS: BUN/Creatinine Ratio 13.8 (8-20); Calcium 8.6 mg/dL (8.6-10.3); EGFR African American 118.8 (>60); EGFR Non-African American 98.2 (>60); Magnesium 1.7 mg/dL (1.9-2.7); Phosphorus 4.4 mg/dL (2.5-5.0); Potassium 3.1 mmol/L (3.5-5.0)
[2019-03-10 08:18] VITALS: BP 120/78
[2019-03-10] MEDS ORDERED: Potassium Chlor TAB* 20 MEQ TAB.ER PO ONE (08:40)
[2019-03-10] MEDS ORDERED: Magnesium Sulfate 2 GM IV* 2 GM/50 ML BAG IVPB ONE (08:40)
--- NOTE | 2019-03-10 08:47 | PN ---
Subjective Date of Service: 03/10/19 Interval History: Seen by ID yesterday - recommended stopping Levaquin (drug fever?) and switching to Augmentin for possible peridontal infection. Pt reports significant improvement in gum pain since last night. Now over 24 hr without fever. K/Mg still requiring significant repletion. Will DC HCTZ (also associated with pancreatitis). Pt declines amlodipine (prior stomach ache) and will monitor BP at home and f/u in clinic. Tolerated solid foods yesterday. Past Medical History: Unchanged from Admission Objective Active Medications: Acetaminophen (Tylenol Tab*) 650 mg PO Q4H PRN PRN Reason: FEVER/PAIN Last Admin: 03/09/19 22:19 Dose: 650 mg Albuterol (Ventolin Hfa Inhaler*) 2 puff INH Q4H PRN PRN Reason: SOB/WHEEZING Last Admin: 03/05/19 04:30 Dose: 2 puff Amoxicillin/Clavulanate Potassium (Augmentin Tab*) 875 mg PO BID [facility] Last Admin: 03/10/19 07:38 Dose: 875 mg Enoxaparin Sodium (Lovenox(*)) 40 mg SUBCUT Q24H [facility] Last Admin: 03/09/19 17:06 Dose: 40 mg Folic Acid (Folvite Tab*) 1 mg PO DAILY [facility] Last Admin: 03/10/19 07:38 Dose: 1 mg Hydrochlorothiazide (Hydrodiuril Tab*) 25 mg PO DAILY [facility] Last Admin: 03/10/19 07:38 Dose: 25 mg Magnesium Sulfate (Magnesium Sulfate 2 Gm Iv*) 2 gm in 50 mls @ 50 mls/hr IVPB ONCE ONE Stop: 03/10/19 09:39 Lisinopril (Prinivil Tab*) 40 mg PO DAILY [facility] Last Admin: 03/10/19 07:38 Dose: 40 mg Magnesium Oxide (Magox 400 Tab*) 400 mg PO BID [facility] Last Admin: 03/10/19 07:38 Dose: 400 mg Morphine Sulfate (Morphine Inj (Syringe))*) 2 mg IV Q2H PRN PRN Reason: PAIN Last Admin: 03/10/19 04:28 Dose: 2 mg Pantoprazole Sodium (Protonix Tab*) 40 mg PO DAILY [facility] Last Admin: 03/10/19 07:38 Dose: 40 mg Potassium Chloride (Klor Con Er Tab*) 60 meq PO ONCE ONE Stop: 03/10/19 08:41 Potassium Phos/Sodium Phos (Neutra Phos 250 Mg Toni*) 250 mg PO BID [facility] Last Admin: 03/10/19 07:38 Dose: 250 mg Prochlorperazine Edisylate (Compazine Inj*) 5 mg IV Q6H PRN PRN Reason: NAUSEA/VOMITING Last Admin: 03/08/19 12:46 Dose: 5 mg Thiamine HCl (Vitamin B-1 Tab*) 100 mg PO DAILY [facility] Last Admin: 03/10/19 07:39 Dose: 100 mg Vitamin B Complex/Vitamin E (B Complex-50*) 1 tab PO DAILY [facility] Last Admin: 03/10/19 07:39 Dose: 1 tab Vital Signs - 8 hr 03/10/19 03/10/19 03/10/19 04:28 05:47 07:54 Temperature 98.2 F Pulse Rate 85 Respiratory 18 16 18 Rate Blood Pressure 120/78 (mmHg) O2 Sat by Pulse 94 Oximetry Oxygen Devices in Use Now: None Appearance: well appearing, dressed, walking around Eyes: No Scleral Icterus Ears/Nose/Mouth/Throat: Clear Oropharnyx, Mucous Membranes Moist Neck: NL Appearance and Movements; NL JVP Respiratory: Clear to Percussion Cardiovascular: RRR Abdominal: NL Sounds; No Tenderness; No Distention, No Hepatosplenomegaly Lymphatic: No Cervical Adenopathy Extremities: No Edema Skin: No Rash or Ulcers Neurological: Alert and Oriented x 3 Result Diagrams: 03/10/19 07:16 03/10/19 07:16 Additional Lab and Data: Lab Results 03/02/19 03/02/19 03/02/19 Range/Units 04:49 04:49 04:49 WBC 17.9 H (3.5-10.8) 10^3/uL RBC 4.51 (4.18-5.48) 10^6 /uL Hgb 15.5 (14.0-18.0) g/dL Hct 45 (42-52) % MCV 101 H (80-94) fL MCH 34 H (27-31) pg MCHC 34 (31-36) g/dL RDW 17 H (10.5-15) % Plt Count 225 (150-450) 10^3/uL MPV 8.1 (7.4-10.4) fL Neut % (Auto) 88.5 % Lymph % (Auto) 6.1 % Coles % (Auto) 4.7 % Eos % (Auto) 0.3 % Baso % (Auto) 0.4 % Absolute Neuts (auto) 15.8 H (1.5-7.7) 10^3/ul Absolute Lymphs (auto) 1.1 (1.0-4.8) 10^3/ul Absolute Monos (auto) 0.8 (0-0.8) 10^3/ul Absolute Eos (auto) 0.0 (0-0.6) 10^3/ul Absolute Basos (auto) 0.1 (0-0.2) 10^3/ul Absolute Nucleated RBC 0.0 10^3/ul Nucleated RBC % 0.0 INR (Anticoag Therapy) 0.99 (0.82-1.09) APTT 27.0 (26.0-36.3) seconds Sodium 134 L (135-145) mmol/L Potassium 4.1 (3.5-5.0) mmol/L Chloride 97 L (101-111) mmol/L Carbon Dioxide 23 (22-32) mmol/L Anion Gap 14 H (2-11) mmol/L BUN 30 H (6-24) mg/dL Creatinine 1.10 (0.67-1.17) mg/dL Est GFR ( Amer) 90.6 (>60) Est GFR (Non-Af Amer) 74.9 (>60) BUN/Creatinine Ratio 27.3 H (8-20) Glucose 118 H (70-100) mg/dL Calcium 9.9 (8.6-10.3) mg/dL Magnesium 1.1 L (1.9-2.7) mg/dL Total Bilirubin 1.00 (0.2-1.0) mg/dL AST 141 H (13-39) U/L ALT 115 H (7-52) U/L Alkaline Phosphatase 102 (34-104) U/L C-Reactive Protein 7.14 (<8.01) mg/L Total Protein 7.6 (6.4-8.9) g/dL Albumin 4.5 (3.2-5.2) g/dL Globulin 3.1 (2-4) g/dL Albumin/Globulin Ratio 1.5 (1-3) Amylase 1210 H (29-103) U/L Lipase 4741 H (11.0-82.0) U/L Microbiology and Other Data: Microbiology 03/05/19 05:41 Aerobic Blood Culture - Preliminary Blood Venous No Growth Day 1 Anaerobic Blood Culture - Preliminary No Growth Day 1 03/05/19 05:41 Aerobic Blood Culture - Preliminary Blood Venous No Growth Day 1 Anaerobic Blood Culture - Preliminary No Growth Day 1 Assess/Plan/Problems-Billing Assessment: 38M with HTN, EtOH abuse, admitted for ETOH induced pancreatitis and wihdrawal, course c/b pleural effusions and respiratory distress from IVF for pancreatitis , then fever of unknown origin. ID following, s/p levofloxacin 5 days, switched to Augmentin for possible periodontal infection. Now fever resolved and pt eating full diet. - Patient Problems (1) Pancreatitis Comment: Acute due to EOTH abuse. Now off IVF and tolerating PO. Repeat CT without evidence for complications. (2) Fluid overload Comment: Euvolemic. No longer on diuretics. (3) Pneumonia Comment: Off levaquin, no recurrence of fevers. Started on Augmentin and has dental f/u in 5 days. (4) ETOH abuse Comment: Extensively discussed alcohol avoidance. (5) HTN (hypertension) Comment: - cont lisinopril; DC HCTZ given profound K/Mg deficiency requiring daily repletion (6) DVT prophylaxis Comment: lovenox 40 mg SQ daily Status and Disposition: inpatient
[2019-03-10] MEDS ORDERED: Pantoprazole TAB * 40 MG TAB PO SCH (09:00)
--- NOTE | 2019-03-10 13:39 | DS ---
CC: Dr. Debbie Elena; Dr. Tate Espana* DISCHARGE SUMMARY: DATE OF ADMISSION: 03/02/19 DATE OF DISCHARGE: 03/10/19 PRIMARY CARE PROVIDER: Dr. Debbie Elean. PRIMARY DIAGNOSES: 1. Pancreatitis. 2. Volume overload, iatrogenic. 3. Fever of unknown origin. 4. Alcohol withdrawal. SECONDARY DIAGNOSES: 1. Alcohol use disorder. 2. Tobacco use. 3. Hypertension. CONSULTS: Infectious Disease, Dr. Tate Espana. DISCHARGE MEDICATIONS: 1. Lisinopril 40 mg daily. 2. Pantoprazole 40 mg daily. 3. Augmentin 875 twice a day for 6 days. 4. Albuterol 2 puffs every 4 hours as needed for shortness of breath. 5. Vitamin B complex 1 tablet daily. HISTORY OF PRESENT ILLNESS: Mr. Iglesias is a 38-year-old man with a history of hypertension, alcohol use disorder, tobacco use, who drinks approximately a bottle of bourbon a day. He states that 3 days prior to presentation he began to develop severe abdominal pain and had to stop drinking. History was limited as the patient had received multiple doses of Ativan and Dilaudid in the emergency department. HOSPITAL COURSE: The patient was admitted to the telemetry floor with a diagnosis of acute pancreatitis. He was also treated for alcohol withdrawal as per the [facility] protocol. He was started on aggressive IV fluids and given as needed pain control. After a couple days on IV fluids, the patient had tachycardia, fever at 102 with a troponin of 0.13. At bedside, he was noted to have increased wheezing with crackles one-third up his lungs. He was thought to be volume overloaded from aggressive IV fluids. A chest x-ray was notable for bilateral pleural effusions with concern for opacification of the right infrahilar region and also possibly in the left lower lung, which was new. It is unclear if this was consolidation or interstitial edema and the patient was started on Levaquin given fever. His fever has subsequently resolved for 3 days and he experienced recurrence of fever to 101.2 with no focal signs of infection, so Infectious Disease was consulted. He was also started on Lasix and continued on his home hydrochlorothiazide for volume overload. Infectious Disease saw and evaluated the patient and thought his elevated temperature after 4 to 5 days on Levaquin could have been from a drug fever and recommended discontinuing Levaquin. The patient was noted to have teeth in various stages of decay and 1 dental caries with surrounding gum tenderness and erythema, which also possibly could have been the source of fever, so he was switched from Levaquin to oral Augmentin. After this switch, the patient had remained afebrile for over 24 hours. He also reported improvement in his gum pain. Recurrence of fever could have also been from pancreatitis, so a CT scan was repeated which did not show evidence of abscess, loculated fluid, or necrotizing pancreatitis. On the day of discharge, the patient reported significant improvement in his abdominal pain along with significant improvement in appetite. He had been tolerating solid foods over 24 hours and was noted to be frequently walking around the hospital floors without dyspnea, fatigue, or gait instability. He further denied chest pain. REVIEW OF SYSTEMS: A full 10-point review of systems performed and pertinent positives and negatives are listed. PERTINENT STUDIES/LABS: Presenting lipase 4741. Troponin peak 0.13. Hemoglobin on discharge 11.9 with MCV 98. Abdomen and pelvis CT on 03/08/19 with progression of peripancreatic inflammatory change and fluid without loculated fluid collection consistent with history of pancreatitis, noted interval development of bilateral pleural effusions with right effusion possibly partially loculated, and small amount of ascites. Chest x-ray on 03/09/19: Interstitial edema improved with right pleural effusion mild. DISCHARGE PLAN: The patient is to follow up in [facility] with prior PCP, Dr. Elena. Given normal blood pressures during admission and frequent profoundly low potassium and magnesium requiring repletion, the patient 's hydrochlorothiazide was discontinued. Amlodipine was considered if second agent needed to control blood pressure, but the patient states he had upset stomach when trying amlodipine in the past. He will remain on lisinopril 40 and was encouraged to check his blood pressures at home. He was given Augmentin twice a day to continue until his followup appointment in [facility] in 5 days. Alcohol cessation and smoking cessation were frequently discussed with the patient and he seems motivated to abstain from both alcohol and tobacco. Infectious Disease also recommending repeat chest x-ray with PCP as an outpatient. He is to resume a normal healthy diet and activity as tolerated. DISPOSITION: To home. CONDITION: Good. TIME SPENT: Approximately 60 minutes was spent on discharge of this patient, more than half of which was spent in care coordination or at bedside for interview and exam. [id number]/CPS #: [id number] [place]
[2019-03-10] MEDS ORDERED: amLODIPine TAB* 5 MG PO SCH (21:00)
== END 2019-03-10 11:35 | disposition home or self-care (01) | DRG 282 ==
LOC: ED 02:55 → MEDTELE 08:54 → MED 03-06 01:23
PROVIDERS: ADMIT Internal Medicine; ATTEND Internal Medicine
DX: K85.20 Alcohol induced acute pancreatitis without necrosis or infection (principal); J15.6 Pneumonia due to other Gram-negative bacteria; F10.239 Alcohol dependence with withdrawal, unspecified; J90 Pleural effusion, not elsewhere classified; I10 Essential (primary) hypertension; K21.9 Gastro-esophageal reflux disease without esophagitis; F17.210 Nicotine dependence, cigarettes, uncomplicated; K70.11 Alcoholic hepatitis with ascites; Y90.9 Presence of alcohol in blood, level not specified; R07.9 Chest pain, unspecified; E87.6 Hypokalemia; E83.42 Hypomagnesemia; K70.10 Alcoholic hepatitis without ascites; Y95 Nosocomial condition; E87.70 Fluid overload, unspecified; F41.9 Anxiety disorder, unspecified; Z83.3 Family history of diabetes mellitus; Z82.5 Family history of asthma and other chronic lower respiratory diseases; Z82.49 Family history of ischemic heart disease and other diseases of the circulatory system
CPT/HCPCS: 36415; 71045; 71046; 74177; 80048; 80053; 80076; 81003; 81015; 82150; 83605; 83690; 83735; 84100; 84145; 84478; 84484; 85025; 85027; 85060; 85610; 85730; 86140; 87040; 87899; 93005; 94640; 99284; A9270-GY; J0780; J1170; J1650; J1940; J2060; J2270; J2765; J2920; J2930; J3411; J3475; Q9967

== ENCOUNTER 2019-03-16 18:37 | Inpatient (IN) | payer OTHER ==
--- OUTSIDE RECORDS SUMMARY | 2019-03-16 19:03 | XMS REPORT | Continuity of Care Document ---
:1980 External Reference #:[id number] Author Name Gogo Hines Care Team Providers Name Role Phone [facility] Primary Care Physician Unavailable Payers Date Identification Numbers Payment Provider Subscriber Policy Number: [id number] James Iglesias PayID: [id number] [address] [place] [address] Expires: 2018 Policy Number: [id number] [employer] Jackson Iglesias PayID: [id number] [place] [address] Onset: 2017 Policy Number: [id number] [employer] Jackson Iglesias Group Name: [phone] [address] PayID: [id number] [place] [address] Expires: 2018 Policy Number: [id number] [employer] Jackson Iglesias PayID: [id number] [id number] [place] [id number] Expires: 2018 Policy Number: [id number] [employer] Jackson Iglesias PayID: [id number] [place] [address] Policy Number: [id number] Medicaid Jackson Iglesias Group Name: 1 1 [address] PayID: [id number] [place] [address] Problems Active Problems Provider Date Low back pain Con Watt M.D. Onset: 02/13/2018 Essential hypertension Con Watt M.D. Onset: 04/06/2018 Lumbar radiculopathy Con Watt M.D. Onset: 05/04/2018 Noncompliance with treatment Gogo Campbell NP Onset: 08/21/2018 Gastroesophageal reflux disease Gogo Campbell NP Onset: 08/21/2018 Cannabis abuse Gogo Campbell NP Onset: 08/21/2018 Essential tremor Gogo Campbell, CIRCULAR CLERK Onset: 08/21/2018 Alcohol withdrawal syndrome Gogo Campbell, CIRCULAR CLERK Onset: 08/21/2018 Alcohol abuse, uncomplicated Aleisha Hein, CIRCULAR CLERK Onset: 08/20/2018 Acute renal failure syndrome Aleisha Hein, CIRCULAR CLERK Onset: 08/20/2018 Disorder of magnesium metabolism Ирина Franco, CIRCULAR CLERK Onset: 08/19/2018 Acute pancreatitis Ирина Franco, CIRCULAR CLERK Onset: 08/19/2018 Family History Date Family Member(s) Observation Comments General Congestive Heart Failure (CHF) Father Diabetes Father Stroke Mother Chronic Obstructive Pulmonary Disease (COPD) Mother Emphysema Siblings 4 Social History Type Date Description Comments Sex Unknown Marital Status Significant Other Lives With Children Lives With Girlfriend Occupation Disabled ETOH Use Consumes liquor once daily Tobacco Use Start: Unknown Patient is a current smoker, smokes every day Recreational Drug Use Formerly used Marijuana regularly Tobacco Use Start: Unknown Light tobacco smoker (10 or fewer cigarettes/day) Smoking Status Reviewed: 03/16/19 Light tobacco smoker (10 or fewer cigarettes/day) Exercise Type/Frequency Exercises regularly Allergies, Adverse Reactions, Alerts Description No Known Drug Allergies Medications Active Medications SIG Qnty Indications Ordering Date Provider Tramadol HCL tab twice a day 14tabs K85.90 Debbie Elena, 03/16/2019 50mg as needed DO Tablets Nicotrol use every 2 168units Luis Guzman MD 05/14/2018 10mg Inhaler hours as needed for nicotine cravings. Lisinopril 2 tab by mouth 60tabs I10 Luis Guzman MD 05/06/2018 20mg Tablets every day Pantoprazole Sodium 1 by mouth every 30tabs Luis Guzman MD day 40mg Tablets DR Torres Back/Hip use as directed 9units Con Watt, See [facility] Vitamin B-12 1 by mouth every Unknown day 1000mcg Tablets Amoxicillin 1 by mouth twice Unknown 875mg a day Tablets History Medications Hydrochlorothiazide 1 by mouth 30tabs Luis Guzman MD 06/24/2018 - 25mg Tablets every day 03/16/2019 Amlodipine Besylate Take 1 tab 30tabs Luis Guzman MD 05/14/2018 - 10mg Tablets each day. 07/24/2018 Lisinopril 1 by mouth 30tabs I10 Con 04/06/2018 - 10mg Tablets every day See Watt 05/06/2018 Naproxen 1 by mouth 60tabs M54.5 Con 03/11/2018 - 500mg Tablets twice a day See Watt 07/24/2018 after meals Vital Signs Date Vital Result Comment 03/16/2019 1:07pm Weight 138.00 lb Heart Rate 80 /min BP Systolic 110 mmHg BP Diastolic 68 mmHg Respiratory Rate 16 /min Body Temperature 99.4 F O2 % BldC Oximetry 98 % 01/13/2019 1:00pm Height 69 inches 5'9" Weight 148.00 lb BP Systolic Sitting 110 mmHg BP Diastolic Sitting 70 mmHg Pain Level 4 BMI (Body Mass Index) 21.9 kg/m2 12/02/2018 1:08pm Height 69 inches 5'9" Weight 148.00 lb BP Systolic Sitting 102 mmHg BP Diastolic Sitting 80 mmHg Pain Level 5 BMI (Body Mass Index) 21.9 kg/m2 10/21/2018 2:21pm Height 69 inches 5'9" Weight 148.00 lb BP Systolic Sitting 122 mmHg BP Diastolic Sitting 70 mmHg Pain Level 4 BMI (Body Mass Index) 21.9 kg/m2 07/27/2018 11:32am Height 69 inches 5'9" Heart Rate 84 /min BP Systolic Sitting 108 mmHg BP Diastolic Sitting 78 mmHg Body Temperature 97.0 F O2 % BldC Oximetry 96 % at rest on room air 06/24/2018 1:00pm Height 69 inches 5'9" Weight 148.00 lb BP Systolic Sitting 140 mmHg BP Diastolic Sitting 78 mmHg Pain Level 6 BMI (Body Mass Index) 21.9 kg/m2 06/03/2018 1:14pm Height 69 inches 5'9" Weight 148.00 lb BP Systolic Sitting 130 mmHg BP Diastolic Sitting 80 mmHg Pain Level 7 BMI (Body Mass Index) 21.9 kg/m2 05/20/2018 10:46am Height 69 inches 5'9" Weight 148.00 lb BP Systolic 137 mmHg L arm average cuff BP Diastolic 93 mmHg L arm average cuff BP Systolic Sitting 142 mmHg R arm average cuff BP Diastolic Sitting 91 mmHg R arm average cuff Respiratory Rate 18 /min Body Temperature 98.3 F Pain Level 7 O2 % BldC Oximetry 98 % BMI (Body Mass Index) 21.9 kg/m2 05/06/2018 9:58am Height 69 inches 5'9" Weight 152.00 lb Heart Rate 58 /min BP Systolic 174 mmHg R arm adult average cuff BP Diastolic 114 mmHg R arm adult average cuff BP Systolic Sitting 167 mmHg L arm average adult cuff BP Diastolic Sitting 108 mmHg L arm average adult cuff Respiratory Rate 16 /min Body Temperature 98.3 F Pain Level 5 O2 % BldC Oximetry 97 % BMI (Body Mass Index) 22.4 kg/m2 05/04/2018 9:11am Height 69 inches 5'9" Weight 150.00 lb BP Systolic Sitting 160 mmHg BP Diastolic Sitting 100 mmHg Pain Level 6 BMI (Body Mass Index) 22.1 kg/m2 04/06/2018 9:18am Height 69 inches 5'9" Weight 150.00 lb Heart Rate 72 /min BP Systolic 172 mmHg BP Diastolic 110 mmHg Respiratory Rate 24 /min Pain Level 7 BMI (Body Mass Index) 22.1 kg/m2 03/11/2018 1:16pm Height 69 inches 5'9" Weight 154.00 lb BP Systolic Sitting 140 mmHg BP Diastolic Sitting 100 mmHg Pain Level 6 BMI (Body Mass Index) 22.7 kg/m2 02/13/2018 9:25am Height 69 inches 5'9" Weight 154.00 lb BP Systolic Sitting 118 mmHg BP Diastolic Sitting 78 mmHg Pain Level 7 BMI (Body Mass Index) 22.7 kg/m2 Results Test Date Facility Test Result H/L Range Note CBC Auto Diff 03/16/2019 [facility] White Blood 10.7 10^3/uL N 3.5-10.[address] [place] [address] [phone] Red Blood Count 3.79 10^6/uL Low 4.18-5.48 Hemoglobin 12.7 g/dL Low 14.0-18.0 Hematocrit 38 % Low 42-52 Mean Corpuscular Volume 99 fL High 80-94 Mean Corpuscular Hemoglobin 34 pg High 27-31 Mean Corpuscular HGB Conc 34 g/dL N 31-36 Red Cell Distribution Width 18 % High 10.5-15 Platelet Count 737 10^3/uL High 150-450 Mean Platelet Volume 7.3 fL Low 7.4-10.4 Abs Neutrophils 6.7 10^3/uL N 1.5-7.7 Abs Lymphocytes 2.7 10^3/uL N 1.0-4.8 Abs Monocytes 0.8 10^3/uL N 0-0.8 Abs Eosinophils 0.4 10^3/uL N 0-0.6 Abs Basophils 0.1 10^3/uL N 0-0.2 Abs Nucleated RBC 0.0 10^3/uL Granulocyte % 63.3 % Lymphocyte % 25.1 % Monocyte % 7.2 % Eosinophil % 3.3 % Basophil % 1.1 % Nucleated Red Blood Cells % 0.0 Laboratory test 03/16/2019 [facility] Magnesium <pending> finding [address] [place] [address] [phone] Basic Metabolic 05/19/2018 [facility] Sodium 138 mmol/L N 135- 145 Panel [address] [place] [address] [phone] Potassium 3.9 mmol/L N 3.5-5.0 Chloride 99 mmol/L Low 101-111 Co2 Carbon Dioxide 28 mmol/L N 22-32 Anion Gap 11 mmol/L N 2-11 Glucose 71 mg/dL N 70-100 Blood Urea Nitrogen 11 mg/dL N 6-24 Creatinine 0.87 mg/dL N 0.67-1.17 BUN/Creatinine Ratio 12.6 N 8-20 Calcium 9.4 mg/dL N 8.6-10.3 Egfr Non- 98.2 >60 Egfr 118.8 >60 1 Laboratory test 05/19/2018 [facility] Hemoglobin A1c 5.6 % N 4.0-5.6 2 finding [address] [facility] (Glyco HGB) [place] [address] [phone] Lipid Profile 05/19/2018 [facility] Triglycerides 73 mg/dL 3 (Trig/Chol/HDL) [address] [place] [address] [phone] Cholesterol 239 mg/dL 4 HDL Cholesterol 125.1 mg/dL 5 LDL Cholesterol 99 mg/dL 6 Inr/Protime 03/04/2018 [facility] Inr 0.87 N 0.77-1.02 [address] [place] [address] [phone] Laboratory test 03/04/2018 [facility] Partial 30.0 seconds N 26.0-36.[address] [place] [address] PTT [phone] Platelet Count 03/04/2018 [facility] Platelet 180 10^3/uL N 150-[address] [place] [address] [phone] Mean Platelet Volume 8.0 um3 N 7.4-10.4 Xray 02/13/2018 [facility] Spine Thoracic 3 Views <pending> [address] [place] [address] [phone] SP Lumbar Ap//Lat 2-3 Views <pending> 1 Because ethnic data is not always readily available, this report includes an eGFR for both -Americans and non- Americans. The National Kidney Disease Education Program (NKDEP) does not endorse the use of the MDRD equation for patients that are not between the ages of 18 and 70, are , have extremes of body size, muscle mass, or nutritional status, or are non- or non-. According to the National Kidney Foundation, irrespective of diagnosis, the stage of the disease is based on the level of kidney function: Stage Description GFR(mL/min/1.73 m(2)) 1 Kidney damage with normal or decreased GFR 90 2 Kidney damage with mild decrease in GFR 60-89 3 Moderate decrease in GFR 30-59 4 Severe decrease in GFR 15-29 5 Kidney failure <15 (or dialysis) 2 Therapeutic target for the treatment of diabetes mellitus patients is <7% HBA1C, and in selective patients <6.0%. Please refer to [place] [employer] diabetic care guidelines for further information. 3 Desirable: <150 Borderline High: 150-199 High: 200-499 Very High: >500 4 Desirable: <200 Borderline High: 200-239 High: >239 5 Low: <40 Desirable: 40-60 High: >60 6 Desirable: <100 Near Optimal: 100-129 Borderline High: 130-159 High: 160-189 Very High: >189 Encounters Type Date Location Provider Dx Diagnosis Office Visit 03/10/2019 [facility] Bel Bennett, K85.90 Acute pancreatitis 10:08a Assoc,pc without necrosis or Hospitalists infection, unsp E87.79 Other fluid overload R50.9 Fever, unspecified F10.239 Alcohol dependence with withdrawal, unspecified J90 Pleural effusion, not elsewhere classified I10 Essential (primary) hypertension Office Visit 03/09/2019 [facility] Tate Mckeon K85.90 Acute pancreatitis 7:15a For Marty Dean M.D. without necrosis Diseases or infection, unsp J90 Pleural effusion, not elsewhere classified R50.9 Fever, unspecified D72.829 Elevated white blood cell count, unspecified K02.9 Dental caries, unspecified Office Visit 03/09/2019 [facility] K85.90 Acute pancreatitis 10:07a Assgeoff baumann MD without necrosis Hospitalists or infection, unsp E87.70 Fluid overload, unspecified J18.9 Pneumonia, unspecified organism F10.188 Alcohol abuse with other alcohol-induced disorder Office Visit 03/08/2019 [facility] K85.90 Acute 10:07a geoff Neves M.D. pancreatitis Hospitalists without necrosis or infection, unsp F10.188 Alcohol abuse with other alcohol-induced disorder J18.9 Pneumonia, unspecified organism K21.9 Gastro-esophageal reflux disease without esophagitis I10 Essential (primary) hypertension Office Visit 03/07/2019 [facility], K85.90 Acute 10:07a geoff Neves M.D. pancreatitis Hospitalists without necrosis or infection, unsp F10.188 Alcohol abuse with other alcohol-induced disorder J18.9 Pneumonia, unspecified organism K21.9 Gastro-esophageal reflux disease without esophagitis I10 Essential (primary) hypertension Office Visit 03/06/2019 [facility] K85.90 Acute 10:06a geoff Neves M.D. pancreatitis Hospitalists without necrosis or infection, unsp F10.188 Alcohol abuse with other alcohol-induced disorder K21.9 Gastro-esophageal reflux disease without esophagitis I10 Essential (primary) hypertension J18.9 Pneumonia, unspecified organism Office Visit 03/05/2019 [facility] K85.90 Acute 10:06a geoff Neves M.D. pancreatitis Hospitalists without necrosis or infection, unsp K21.9 Gastro-esophageal reflux disease without esophagitis F10.188 Alcohol abuse with other alcohol-induced disorder J18.9 Pneumonia, unspecified organism R07.9 Chest pain, unspecified Office Visit 03/04/2019 [facility] K85.90 Acute 10:05a geoff Neves M.D. pancreatitis Hospitalists without necrosis or infection, unsp F10.10 Alcohol abuse, uncomplicated K21.9 Gastro-esophageal reflux disease without esophagitis I10 Essential (primary) hypertension Office Visit 03/03/2019 [facility] K85.90 Acute 10:05a geoff Neves M.D. pancreatitis Hospitalists without necrosis or infection, unsp F10.10 Alcohol abuse, uncomplicated Office Visit 03/02/2019 [facility] Sharona Hohn, K85.90 Acute 10:05a geoff Neves M.D. pancreatitis Hospitalists without necrosis or infection, unsp F10.239 Alcohol dependence with withdrawal, unspecified K21.9 Gastro-esophageal reflux disease without esophagitis Office Visit 01/13/2019 Neurosurgery Con Watt M54.5 Low back pain 1:00p [facility] Office Visit 12/02/2018 Neurosurgery Murali Arrieta.Micha Low back pain 1:00p [facility] Office Visit 10/21/2018 Neurosurgery Sunni Arrieta4.Micha Low back pain 2:20p [facility] Office Visit 08/21/2018 [facility] K85.90 Acute pancreatitis 9:50a Assoc,geoff Campbell NP without necrosis Hospitalists or infection, unsp I10 Essential (primary) hypertension F10.239 Alcohol dependence with withdrawal, unspecified G25.2 Other specified forms of tremor F12.90 Cannabis use, unspecified, uncomplicated K21.9 Gastro-esophageal reflux disease without esophagitis Z91.19 Patient's noncompliance w oth medical treatment and regimen Office Visit 08/20/2018 [facility] K85.90 Acute 9:50a Assoc,geoff Hein NP pancreatitis Hospitalists without necrosis or infection, unsp N17.9 Acute kidney failure, unspecified F10.10 Alcohol abuse, uncomplicated I10 Essential (primary) hypertension Office Visit 08/19/2018 [facility] K85.90 Acute pancreatitis 9:48a Assoc,geoff Franco, without necrosis Hospitalists CIRCULAR CLERK or infection, unsp E83.42 Hypomagnesemia Office Visit 07/27/2018 11:30a Neurosurgery Con Watt M54.5 Low back [facility] pain Office Visit 06/24/2018 1:10p Neurosurgery Con Watt M54.Micha [facility] See pain M54.16 Radiculopathy, lumbar region Office Visit 06/03/2018 Neurosurgery Con M54.16 Radiculopathy, 1:10p [facility] Watt M.D. lumbar region Office Visit 05/20/2018 [facility] Debbie Schneider Essential (primary) 10:30a [facility] DO Kassy hypertension M54.5 Low back pain Office Visit 05/06/2018 9:30a [facility] Debbie Schneider Essential ( primary) [facility] DO Kassy hypertension M54.5 Low back pain M54.16 Radiculopathy, lumbar region Office Visit 05/04/2018 Neurosurgery Con M54.16 Radiculopathy, 9:10a [facility] Watt M.D. lumbar region Office Visit 04/06/2018 Neurosurgery Con M54.5 Low back pain 9:00a [facility] Watt M.D. I10 Essential (primary) hypertension Office Visit 03/11/2018 1:20p Neurosurgery Con Watt M54.Micha Low back [facility] pain Office Visit 02/13/2018 10:00a Neurosurgery Sunni Arrieta4.Micha [facility] See pain M62.81 Muscle weakness (generalized) M54.5 Low back pain R20.0 Anesthesia of skin Plan of Treatment Future Appointment(s):04/12/2019 2:00 pm - Debbie Elena DO at [facility]03/16/2019 - Debbie Elena DOK85.90 Acute pancreatitis without necrosis or infection, unspecifieNew Medication:Tramadol HCL 50 mg - tab twice a day as neededFollow up:come back in a month or sooner if [id number] Pleural effusion, not elsewhere [id number] Essential (primary) hypertension
--- OUTSIDE RECORDS SUMMARY | 2019-03-16 19:03 | XMS REPORT | Continuity of Care Document ---
:1980 External Reference #:[id number] Author Name Audrey Edward Care Team Providers Name Role Phone [facility] Primary Care Physician Unavailable Payers Date Identification Numbers Payment Provider Subscriber Policy Number: [id number] James Iglesias PayID: [id number] [address] [place] [address] Expires: 2018 Policy Number: [id number] BS Facets Jackson Iglesias PayID: [id number] [place] [address] Onset: 2017 Policy Number: [id number] Geico Jackson Iglesias Group Name: [phone] [address] PayID: [id number] [place] [address] Expires: 2018 Policy Number: [id number] BS Malathi Iglesias PayID: [id number] [address] [address] [place] [address] Expires: 2018 Policy Number: [id number] BS Malathi Iglesias PayID: [id number] [place] [address] Policy Number: [id number] Medicaid Jackson Iglesias Group Name: 1 1 [address] PayID: [id number] [place] [address] Advance Directives Description No Information Available Problems Active Problems Provider Date Low back pain Con Watt M.D. Onset: 02/13/2018 Essential hypertension Con Watt M.D. Onset: 04/06/2018 Lumbar radiculopathy Con Watt M.D. Onset: 05/04/2018 Noncompliance with treatment Gogo Campbell NP Onset: 08/21/2018 Gastroesophageal reflux disease Gogo Campbell NP Onset: 08/21/2018 Cannabis abuse Gogo Campbell, AGRICULTURE SCIENCE TEACHER Onset: 08/21/2018 Essential tremor Gogo Campbell, AGRICULTURE SCIENCE TEACHER Onset: 08/21/2018 Alcohol withdrawal syndrome Gogo Campbell, AGRICULTURE SCIENCE TEACHER Onset: 08/21/2018 Alcohol abuse, uncomplicated Aleisha Hein, AGRICULTURE SCIENCE TEACHER Onset: 08/20/2018 Acute renal failure syndrome Aleisha Hein, AGRICULTURE SCIENCE TEACHER Onset: 08/20/2018 Disorder of magnesium metabolism Ирина Franco, AGRICULTURE SCIENCE TEACHER Onset: 08/19/2018 Acute pancreatitis Ирина Franco, AGRICULTURE SCIENCE TEACHER Onset: 08/19/2018 Family History Date Family Member(s) [...] (10 or fewer cigarettes/day) Smoking Status Reviewed: 01/13/19 Light tobacco smoker (10 or fewer cigarettes/day) Exercise Type/Frequency Exercises regularly Allergies, Adverse Reactions, Alerts Description No Known Drug Allergies Medications Active Medications SIG Qnty Indications Ordering Date Provider Hydrochlorothiazide 1 by mouth 30tabs Luis Guzman MD 06/24/2018 25mg Tablets every day Nicotrol use every 2 168units Luis Guzman MD 05/14/2018 10mg Inhaler hours as needed for nicotine cravings. Lisinopril 2 tab by mouth 60tabs I10 Luis Guzman MD 05/06/2018 20mg Tablets every day Pantoprazole Sodium 1 by mouth 30tabs Luis Guzman MD 40mg Tablets every day DR Torres Back/Hip use as 9units Con Watt, [facility] directed MSabra History Medications Amlodipine Besylate Take 1 tab each 30tabs Luis Guzman MD 05/14/2018 - day. 07/24/2018 10mg Tablets Lisinopril 1 by mouth every 30tabs I10 Con Watt, 04/06/2018 - 10mg Tablets day M.D. 05/06/2018 Naproxen 1 by mouth twice 60tabs M54.5 Con Watt, 03/11/2018 - 500mg Tablets a day after M.D. 07/24/2018 meals Immunizations Description No Information Available Vital Signs Date Vital Result Comment 01/13/2019 1:00pm Height 69 inches 5'9" Weight [...] Date Facility Test Result H/L Range Note Basic Metabolic 05/19/2018 [facility] Sodium 138 mmol/L N 135- [address] [place] [address] [phone] Potassium 3.9 mmol/L N 3.5-5.0 Chloride 99 mmol/L Low 101-111 Co2 Carbon Dioxide 28 mmol/L N 22-32 Anion Gap 11 mmol/L N 2-11 Glucose 71 mg/dL N 70-100 Blood Urea Nitrogen 11 mg/dL N 6-24 Creatinine 0.87 mg/dL N 0.67-1.17 BUN/Creatinine Ratio 12.6 N 8-20 Calcium 9.4 mg/dL N 8.6-10.3 Egfr Non- 98.2 >60 Egfr 118.8 >60 1 Laboratory test 05/19/2018 [facility] Hemoglobin A1c 5.6 % N 4.0-5.[address] (Glyco HGB) [place] [address] [phone] Lipid Profile 05/19/2018 [facility] Triglycerides 73 mg/dL 3 (Trig/Chol/HDL) [address] [place] [address] [phone] Cholesterol 239 mg/dL 4 HDL Cholesterol 125.1 mg/dL 5 LDL Cholesterol 99 mg/dL 6 Inr/Protime 03/04/2018 [facility] Inr 0.87 N 0.77-1.[address] [place] [address] [phone] Laboratory test 03/04/2018 [facility] Partial 30.0 seconds N 26.0-36.[address] [place] [address] PTT [phone] Platelet Count 03/04/2018 [facility] Platelet 180 10^3/uL N 150-[address] [place] [address] [phone] Mean Platelet Volume 8.0 um3 N 7.4-10.4 Xray 02/13/2018 [facility] Spine Thoracic 3 Views <pending> [address] [place] [address] [phone] SP Lumbar Ap//Lat 2-3 Views <pending> 1 [...] in selective patients <6.0%. Please refer to [place] [employer] diabetic care guidelines for further information. 3 Desirable: <150 Borderline High: 150-199 High: 200-499 Very High: >500 4 Desirable: <200 Borderline High: 200-239 High: >239 5 Low: <40 Desirable: 40-60 High: >60 6 Desirable: <100 Near Optimal: 100-129 Borderline High: 130-159 High: 160-189 Very High: >189 Procedures Description No Information Available Encounters Type Date Location Provider Dx Diagnosis Office Visit 01/13/2019 Neurosurgery Con Watt M54.5 Low back pain 1:00p [facility] Office Visit 12/02/2018 Neurosurgery Con Watt M54.5 Low back pain 1:00p [facility] Office Visit 10/21/2018 Neurosurgery Con Watt M54.5 Low back pain 2:20p [facility] 9:50a Assoc,pc Shannan, AGRICULTURE SCIENCE TEACHER without necrosis or Hospitalists infection, unsp I10 Essential (primary) hypertension F10.239 Alcohol dependence with withdrawal, unspecified G25.2 Other specified forms of tremor F12.90 Cannabis use, unspecified, uncomplicated K21.9 Gastro-esophageal reflux disease without esophagitis Z91.19 Patient's noncompliance w oth medical treatment and regimen Office Visit 08/20/2018 [facility] K85.90 Acute 9:50a Assoc,pc Melvina, AGRICULTURE SCIENCE TEACHER pancreatitis Hospitalists without necrosis or infection, unsp N17.9 Acute kidney failure, unspecified F10.10 Alcohol abuse, uncomplicated I10 Essential (primary) hypertension Office Visit 08/19/2018 [facility] K85.90 Acute pancreatitis 9:48a Assoc,pc Yaya Franco, without necrosis Hospitalists AGRICULTURE SCIENCE TEACHER or infection, unsp E83.42 Hypomagnesemia Office Visit 07/27/2018 11:30a Neurosurgery Murali Arrieta.Micha Low back [facility] pain Office Visit 06/24/2018 1:10p Neurosurgery Sunni Arrieta4.Micha [facility] pain M54.16 Radiculopathy, lumbar region Office Visit 06/03/2018 Neurosurgery Con M54.16 Radiculopathy, 1:10p [facility] M.D. lumbar region Office Visit 05/20/2018 [facility] I10 Essential (primary) 10:30a [facility] DO hypertension M54.5 Low back pain Office Visit 05/06/2018 9:30a [facility] I10 Essential ( primary) [facility] DO hypertension M54.5 Low back pain M54.16 Radiculopathy, lumbar region Office Visit 05/04/2018 Neurosurgery Con M54.16 Radiculopathy, 9:10a [facility] M.D. lumbar region Office Visit 04/06/2018 Neurosurgery Con Vargas Low back pain 9:00a [facility] M.D. I10 Essential (primary) hypertension Office Visit 03/11/2018 1:20p Neurosurgery Sam Arrieta Low back [facility] pain Office Visit 02/13/2018 10:00a Neurosurgery Sunni Arrieta4David Low back [facility] pain M62.81 Muscle weakness (generalized) M54.5 Low back pain R20.0 Anesthesia of skin Plan of Treatment 05/04/2018 - Con Watt M.D.M54.16 Radiculopathy, lumbar regionFollow up: refer to Dr. Carlos for LESI Refer to new outpatient adult health clinical nurse specialist has at [facility] for BP evaluation F/U with me 4 weeks
--- OUTSIDE RECORDS SUMMARY | 2019-03-16 19:04 | XMS REPORT | Continuity of Care Document ---
:1980 External Reference #:[id number] Author Name Audrey Edward Care Team Providers Name Role Phone [facility] Primary Care Physician Unavailable Payers Date Identification Numbers Payment Provider Subscriber Policy Number: [id number] James Iglesias PayID: [id number] [address] [place] [address] Expires: 2018 Policy Number: [id number] BS Facets Jackson Iglesias PayID: [id number] [place] [address] Onset: 2017 Policy Number: [id number] Geico Jackson Iglesias Group Name: [phone] [address] PayID: [id number] [place] [address] Expires: 2018 Policy Number: [id number] BS Malathi gIlesias PayID: [id number] [address] [address] [place] [address] Expires: 2018 Policy Number: [id number] BS Malathi Iglesias PayID: [id number] [place] [address] Policy Number: [id number] Medicaid Jackson Iglesias Group Name: 1 1 [address] PayID: [id number] [place] [address] Advance Directives Description No Information Available Problems Active Problems Provider Date Low back pain Con Watt M.D. Onset: 02/13/2018 Essential hypertension Con Watt M.D. Onset: 04/06/2018 Lumbar radiculopathy Con Watt M.D. Onset: 05/04/2018 Noncompliance with treatment Gogo Campbell NP Onset: 08/21/2018 Gastroesophageal reflux disease Gogo Campbell NP Onset: 08/21/2018 Cannabis abuse Gogo Campbell, TRAUMA THERAPIST Onset: 08/21/2018 Essential tremor Gogo Campbell, TRAUMA THERAPIST Onset: 08/21/2018 Alcohol withdrawal syndrome Gogo Campbell, TRAUMA THERAPIST Onset: 08/21/2018 Alcohol abuse, uncomplicated Aleisha Hein, TRAUMA THERAPIST Onset: 08/20/2018 Acute renal failure syndrome Aleisha Hein, TRAUMA THERAPIST Onset: 08/20/2018 Disorder of magnesium metabolism Ирина Franco, TRAUMA THERAPIST Onset: 08/19/2018 Acute pancreatitis Ирина Franco, TRAUMA THERAPIST Onset: 08/19/2018 Family History Date Family Member(s) [...] Torres Back/Hip use as 9units Con Watt, [facility] directed MSabra History Medications Amlodipine Besylate Take [...] Result H/L Range Note Basic Metabolic 05/19/2018 [facility] Sodium 138 mmol/L N 135- [address] [place] [address] [phone] Potassium 3.9 mmol/L N 3.5-5.0 Chloride 99 mmol/L Low 101-111 Co2 Carbon Dioxide 28 mmol/L N 22-32 Anion Gap 11 mmol/L N 2-11 Glucose 71 mg/dL N 70-100 Blood Urea Nitrogen 11 mg/dL N 6-24 Creatinine 0.87 mg/dL N 0.67-1.17 BUN/Creatinine Ratio 12.6 N 8-20 Calcium 9.4 mg/dL N 8.6-10.3 Egfr Non- 98.2 >60 Egfr 118.8 >60 1 Laboratory test 05/19/2018 [facility] Hemoglobin A1c 5.6 % N 4.0-5.[address] (Glyco HGB) [place] [address] [phone] Lipid Profile 05/19/2018 [facility] Triglycerides 73 mg/dL 3 (Trig/Chol/HDL) [address] [place] [address] [phone] Cholesterol 239 mg/dL 4 HDL Cholesterol 125.1 mg/dL 5 LDL Cholesterol 99 mg/dL 6 Inr/Protime 03/04/2018 [facility] Inr 0.87 N 0.77-1.[address] [place] [address] [phone] Laboratory test 03/04/2018 [facility] Partial 30.0 seconds N 26.0-36.[address] [place] [address] PTT [phone] Platelet Count 03/04/2018 [facility] Platelet 180 10^3/uL N 150-[address] [place] [address] [phone] Mean Platelet Volume 8.0 um3 N 7.4-10.4 Xray 02/13/2018 [facility] Spine Thoracic 3 Views <pending> [address] [place] [address] [phone] SP Lumbar Ap//Lat 2-3 Views <pending> 1 [...] in selective patients <6.0%. Please refer to [place] [employer] diabetic care guidelines for further [...] [facility] 9:50a Assoc,pc Shannan, TRAUMA THERAPIST without necrosis or Hospitalists infection, unsp I10 Essential (primary) hypertension F10.239 Alcohol dependence with withdrawal, unspecified G25.2 Other specified forms of tremor F12.90 Cannabis use, unspecified, uncomplicated K21.9 Gastro-esophageal reflux disease without esophagitis Z91.19 Patient's noncompliance w oth medical treatment and regimen Office Visit 08/20/2018 [facility] K85.90 Acute 9:50a Assoc,pc Melvina, TRAUMA THERAPIST pancreatitis Hospitalists without necrosis or infection, unsp N17.9 Acute kidney failure, unspecified F10.10 Alcohol abuse, uncomplicated I10 Essential (primary) hypertension Office Visit 08/19/2018 [facility] K85.90 Acute pancreatitis 9:48a Assoc,pc Yaya Franco, without necrosis Hospitalists TRAUMA THERAPIST or infection, unsp E83.42 Hypomagnesemia Office Visit [...] lumbar region Office Visit 04/06/2018 Neurosurgery Con aVrgas Low back pain 9:00a [facility] [...] Carlos for LESI Refer to new outpatient senior clinical study manager has at [facility] for BP evaluation F/U with me 4 weeks
[2019-03-16 19:31] LABS: ABS Basophils 0.2 10^3/ul (0-0.2); ABS Eosinophils 0.4 10^3/ul (0-0.6); ABS Lymphocytes 2.3 10^3/ul (1.0-4.8); ABS Monocytes 0.7 10^3/ul (0-0.8); ABS Neutrophils 8.1 10^3/ul (1.5-7.7); Eosinophil % 3.4 %; Hematocrit 36 % (42-52); Hemoglobin 12.3 g/dL (14.0-18.0); Lymphocyte % 19.6 %; Mean Corpuscular HGB Conc 34 g/dL (31-36); Mean Corpuscular Hemoglobin 34 pg (27-31); Mean Corpuscular Volume 99 fL (80-94); Nucleated Red Blood Cells % 0.1; Platelet Count 710 10^3/uL (150-450); Red Blood Count 3.63 10^6 /uL (4.18-5.48); Red Cell Distribution Width 18 % (10.5-15); White Blood Count 11.6 10^3/uL (3.5-10.8)
[2019-03-16 19:51] LABS: ALT 19 U/L (7-52); AST 22 U/L (13-39); Albumin 3.6 g/dL (3.2-5.2); Albumin/Globulin Ratio 1.2 (1-3); Alkaline Phosphatase 70 U/L (34-104); Anion Gap 6 mmol/L (2-11); BUN/Creatinine Ratio 17.2 (8-20); Blood Urea Nitrogen 16 mg/dL (6-24); C Reactive Protein 5.91 mg/L (<8.01); CO2 Carbon Dioxide 28 mmol/L (22-32); Calcium 9.3 mg/dL (8.6-10.3); Chloride 103 mmol/L (101-111); EGFR Non-African American 90.9 (>60); Glucose 123 mg/dL (70-100); Potassium 4.1 mmol/L (3.5-5.0); Sodium 137 mmol/L (135-145); Total Protein 6.6 g/dL (6.4-8.9)
[2019-03-16] MEDS ORDERED: NS 0.9% 1000 ML** 1,000 ML IV ONE (20:57)
[2019-03-16] MEDS ORDERED: Morphine 4 MG/ML VIAL (1 ml) 4 MG/ML VIAL IV ONE (20:57)
[2019-03-16] MEDS ORDERED: Ondansetron INJ* 2 MG/ML VIAL IV ONE (20:57)
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
[2019-03-17] MEDS ORDERED: Ondansetron INJ* 2 MG/ML VIAL IV PRN (01:43)
[2019-03-17] MEDS ORDERED: Al Hydrox/Mg Hydrox/Simet LIQ* 30 ML UDC PO PRN (01:43)
[2019-03-17] MEDS ORDERED: Albuterol HFA INHALER* 8 gm MDI INH PRN (01:47)
[2019-03-17] MEDS ORDERED: Polyethylene Glycol 3350* 17 GM PACKET PO PRN (01:52)
[2019-03-17] MEDS ORDERED: Docusate CAP* 100 MG PO PRN (01:52)
[2019-03-17 02:01] LABS: Alcohol < 10 mg/dL (<10)
[2019-03-17] MEDS: Morphine INJ* 2 MG/ML 1 ML SYRINGE (TWO MG - NEW SYRINGE VERSION) IV PRN ×4 (03:07→23:05)
[2019-03-17] MEDS: Amoxicillin/Clavulanate TAB* 875 MG PO SCH ×3 (03:07→21:21)
[2019-03-17] MEDS: Lactated Ringers 1000 ML Bag* 1,000 ML IV SCH ×2 (03:09→12:41)
--- NOTE | 2019-03-17 03:59 | HP ---
CC: Debbie Elena DO * HISTORY AND PHYSICAL: DATE OF ADMISSION: 03/17/19 TIME OF EVALUATION: 0100 PRIMARY CARE PHYSICIAN: Debbie Elena DO. CHIEF COMPLAINT: Epigastric right upper quadrant pain. HISTORY OF PRESENT ILLNESS: This is a 38-year-old male with a past medical history of alcohol abuse, who was recently admitted from 03/02/19 to 03/10/19 for alcoholic pancreatitis and discharged home with his abdominal pain slowly getting better each day and able to tolerate p.o. each day a little bit better. He has not drank since his discharge. Yesterday, around 2:30 in the afternoon , he began developing epigastric right upper quadrant pain. He thought maybe it was because he was hungry. He went to [employer], had a cheese burger, and it did not improve his pain. No nausea or vomiting. No diarrhea. He has had a normal bowel movement daily every morning, but he was concerned about the worsening pain and came to the emergency room for further evaluation. He denies any URI symptoms. No fevers or chills. He is still taking his Augmentin for his tooth extraction, otherwise no recent changes to his medications. In the emergency room, the patient had labs and imaging. There was concern for acalculous cholecystitis. Dr. Alexander was contacted by the ER. She did not feel this was the case. GI was contacted and they recommended admission for MRCP. In the emergency room, the patient received 4 mg of Zofran and a liter of fluid and referred to the hospitalist service for further evaluation. PAST MEDICAL HISTORY: 1. Admission from 03/02/19 to 03/10/19 for alcoholic pancreatitis. 2. History of pancreatitis. 3. History of alcohol abuse. 4. History of tobacco use. 5. Hypertension. 6. Dental abscess. 7. Asthma. MEDICATIONS: 1. Lisinopril 40 mg p.o. daily. 2. Pantoprazole 40 mg p.o. daily. 3. Augmentin 875 p.o. b.i.d. until dental extraction. He has not yet got an appointment. 4. Albuterol 2 puffs every 4 hours as needed for shortness of breath. 5. Vitamin B complex daily. ALLERGIES: No known drug allergies. FAMILY HISTORY: Reviewed and noncontributory. SOCIAL HISTORY: The patient lives at home. His father lives with him. He works in construction. He has not been able to return yet since his discharge on 03/10/19. He has cutback on his smoking, now only smokes a few cigarettes, some vaping of marijuana. He has not gone back to drinking alcohol since admission this month. Code status is full code. REVIEW OF SYSTEMS: A 14-point review of systems as mentioned in the HPI, otherwise negative. PHYSICAL EXAMINATION GENERAL: No acute distress. Resting comfortably. VITAL SIGNS: Temp 97.6, pulse rate 64, respiratory rate 15, oxygen saturation 96% on room air, blood pressure 96/51. HEENT: Head: Normocephalic. Pupils equal and reactive. Anicteric. Oropharynx: Mucous membranes moist. NECK: Supple. No lymphadenopathy. RESPIRATORY: Diminished breath sounds. No wheezing, rhonchi, or rales. CARDIAC: Regular rate and rhythm. Soft systolic murmur heard throughout. ABDOMEN: Positive bowel sounds. Soft. Epigastric and right upper quadrant and left upper quadrant tenderness, more pronounced in the right upper gastric region. EXTREMITIES: No clubbing, cyanosis, or edema. +2 DPs. NEUROLOGIC: Alert and oriented x3. No gross focal neurologic deficits. DIAGNOSTIC STUDIES/LAB DATA: White count 11.6, hemoglobin 12.3, hematocrit 36 , platelets 710. Sodium 137, potassium 4.1, chloride 103, bicarb 28, BUN 16, creatinine 0.93, glucose 123. Lipase 97 compared to 03/08/19 of 111. Radiographic Data: Gallbladder ultrasound shows finding suggestive of acute acalculous cholecystitis, moderate dilatation of CBD measuring 9.2 mm, full evaluation with MRCP may be considered. Incompletely characterized 2.4 x 2.2 x 2.1 cm hypoechoic lesion in the left hepatic lobe adjacent to the pancreas, which was not appreciated on recent CT of the abdomen. Further evaluation with MRI may be considered. ASSESSMENT: This is a 38-year-old male with past medical history of recent admission for alcoholic pancreatitis, returns with worsening epigastric right upper quadrant pain, found to have common bile duct dilatation, concerned for acalculous cholecystitis. 1. Epigastric right upper quadrant pain. Assessment: As mentioned, there is concern for common bile duct stone and possibility of acalculous cholecystitis. The patient's labs do not reflect this. His lipase is trending down. Plan: We will admit him for further workup. We will order an MRCP. Continue him to be NPO with IV fluids and pain control, bowel regimen, and follow up with GI. We will also check an alcohol level. 2. Hypoechoic lesion in the left hepatic lobe. Recommend followup on this with the patient's MRCP. If not able to be visualized, then recommend further workup. 3. Chronic medical problems: Hypertension. The patient's blood pressures are soft. We will hold his lisinopril for now. 4. Dental abscess. Continue his Augmentin. 5. History of alcohol abuse. As mentioned, he has abstained from alcohol. We will check on the level. Continue his pantoprazole and vitamin B12. 6. FEN: NPO with IV fluids. 7. DVT prophylaxis: The patient scores a 0. We will encourage ambulation. 8. Code status: Full code. PATIENT TIME: Greater than 40 minutes was spent doing the history and physical , more than half the time spent in direct patient contact. [id number]/[facility] #: [id number] TEMO
[2019-03-17 06:28] LABS: ABS Basophils 0.2 10^3/ul (0-0.2); ABS Eosinophils 0.4 10^3/ul (0-0.6); ABS Lymphocytes 2.5 10^3/ul (1.0-4.8); ABS Monocytes 0.6 10^3/ul (0-0.8); ABS Neutrophils 5.9 10^3/ul (1.5-7.7); Eosinophil % 4.6 %; Hematocrit 35 % (42-52); Hemoglobin 11.8 g/dL (14.0-18.0); Lymphocyte % 26.1 %; Mean Corpuscular HGB Conc 34 g/dL (31-36); Mean Corpuscular Hemoglobin 34 pg (27-31); Mean Corpuscular Volume 99 fL (80-94); Mean Platelet Volume 6.9 fL (7.4-10.4); Platelet Count 633 10^3/uL (150-450); Red Blood Count 3.52 10^6 /uL (4.18-5.48); Red Cell Distribution Width 17 % (10.5-15); White Blood Count 9.5 10^3/uL (3.5-10.8)
[2019-03-17 06:48] LABS: Albumin 3.1 g/dL (3.2-5.2); Albumin/Globulin Ratio 1.1 (1-3); Calcium 8.9 mg/dL (8.6-10.3); EGFR African American 132.8 (>60); EGFR Non-African American 109.8 (>60); Globulin 2.7 g/dL (2-4); Potassium 4.1 mmol/L (3.5-5.0); Total Bilirubin 0.3 mg/dL (0.2-1.0); Total Protein 5.8 g/dL (6.4-8.9)
[2019-03-17] MEDS: Pantoprazole TAB * 40 MG TAB PO SCH (08:19)
[2019-03-17] MEDS: Vitamin B Complex TAB PO SCH (08:19)
[2019-03-17 09:00] LABS: Urine Appearance Clear; Urine Bacteria Absent (Absent); Urine Bilirubin Negative (Negative); Urine Blood Negative (Negative); Urine Color Yellow; Urine Glucose Negative (Negative); Urine Ketones Negative (Negative); Urine Nitrite Negative (Negative); Urine Protein Negative (Negative); Urine Red Blood Cell 1+(3-5/hpf) (Absent); Urine Specific Gravity 1.015 (1.010-1.030); Urine Urobilinogen Negative (Negative); Urine White Blood Cell Trace(0-5/hpf) (Absent)
[2019-03-17] MEDS: HYDROmorphone INJ1* 1 MG/ML SYRINGE IV SLOW PU PRN ×2 (12:36→21:31)
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
--- NOTE | 2019-03-17 19:45 | PN ---
Subjective Date of Service: 03/17/19 Interval History: Pt seen and examined. Meds and labs reviewed. CC: Abd pain ROS: Denied RECINOS/dizziness, F/C, N/V, CP, SOB, increased cough, sputum production , diarrhea, constipation, dysuria, myalgias, arthralgias, throat pain, and new skin lesions. The rest of the 14 point ROS are unremarkable. PHYSICAL EXAM: GEN APPEARANCE: Awake, not in acute distress HEENT: NC/AT, PERRLA, moist oral mucosa, (-) throat erythema NECK: Soft, supple, (-) cervical LAD, (-)JVD HEART: S1S2 WNL, RRR, No MRG CHEST: CTA, BL, GAE, No W/R/R ABD: Soft, ND/(+)point of maximal tenderness in epigastric area, NABS 4x Q EXT: No C/C/E SKIN: Warm to touch PSYCH: No active psychosis, hallucinations, depression, SI/HI Objective Active Medications: Al Hydrox/Mg Hydrox/Simethicone (Maalox Plus*) 30 ml PO Q6H PRN PRN Reason: INDIGESTION Albuterol (Ventolin Hfa Inhaler*) 2 puff INH Q4H PRN PRN Reason: SOB/WHEEZING Amoxicillin/Clavulanate Potassium (Augmentin Tab*) 875 mg PO BID [facility] Last Admin: 03/17/19 08:19 Dose: 875 mg Docusate Sodium (Colace Cap*) 100 mg PO DAILY PRN PRN Reason: CONSTIPATION Enoxaparin Sodium (Lovenox(*)) 40 mg SUBCUT Q24H [facility] Hydromorphone HCl (Dilaudid Inj1s*) 0.5 mg IV SLOW PU Q6H PRN PRN Reason: PAIN Last Admin: 03/17/19 12:36 Dose: 0.5 mg Lactated Ringer's (Lactated Ringers 1000 Ml Bag*) 1,000 mls @ 125 mls/hr IV PER RATE [facility] Last Admin: 03/17/19 12:41 Dose: 125 mls/hr Morphine Sulfate (Morphine Inj (Syringe))*) 2 mg IV Q4H PRN PRN Reason: PAIN - MILD Last Admin: 03/17/19 19:02 Dose: 2 mg Ondansetron HCl (Zofran Inj*) 4 mg IV Q4H PRN PRN Reason: NAUSEA/VOMITING Pantoprazole Sodium (Protonix Tab*) 40 mg PO DAILY [facility] Last Admin: 03/17/19 08:19 Dose: 40 mg Polyethylene Glycol/Electrolytes (Miralax*) 17 gm PO DAILY PRN PRN Reason: CONSTIPATION Vitamin B Complex/Vitamin E (B Complex-50*) 1 tab PO DAILY [facility] Last Admin: 03/17/19 08:19 Dose: 1 tab Vital Signs - 8 hr 03/17/19 03/17/19 03/17/19 12:36 15:54 19:02 Temperature 98.2 F Pulse Rate 64 Respiratory 16 16 16 Rate Blood Pressure 116/72 (mmHg) O2 Sat by Pulse 98 Oximetry Oxygen Devices in Use Now: None Result Diagrams: 03/17/19 06:18 03/17/19 06:18 Additional Lab and Data: Lab Results 03/16/19 03/16/19 03/16/19 Range/Units 19:24 19:24 19:24 WBC 11.6 H (3.5-10.8) 10^3/uL RBC 3.63 L (4.18-5.48) 10^6 /uL Hgb 12.3 L (14.0-18.0) g/dL Hct 36 L (42-52) % MCV 99 H (80-94) fL MCH 34 H (27-31) pg MCHC 34 (31-36) g/dL RDW 18 H (10.5-15) % Plt Count 710 H (150-450) 10^3/uL MPV 7.0 L (7.4-10.4) fL Neut % (Auto) 69.5 % Lymph % (Auto) 19.6 % Tompkins % (Auto) 6.2 % Eos % (Auto) 3.4 % Baso % (Auto) 1.3 % Absolute Neuts (auto) 8.1 H (1.5-7.7) 10^3/ul Absolute Lymphs (auto) 2.3 (1.0-4.8) 10^3/ul Absolute Monos (auto) 0.7 (0-0.8) 10^3/ul Absolute Eos (auto) 0.4 (0-0.6) 10^3/ul Absolute Basos (auto) 0.2 (0-0.2) 10^3/ul Absolute Nucleated RBC 0.0 10^3/ul Nucleated RBC % 0.1 Sodium 137 (135-145) mmol/L Potassium 4.1 (3.5-5.0) mmol/L Chloride 103 (101-111) mmol/L Carbon Dioxide 28 (22-32) mmol/L Anion Gap 6 (2-11) mmol/L BUN 16 (6-24) mg/dL Creatinine 0.93 (0.67-1.17) mg/dL Est GFR ( Amer) 110.0 (>60) Est GFR (Non-Af Amer) 90.9 (>60) BUN/Creatinine Ratio 17.2 (8-20) Glucose 123 H (70-100) mg/dL Lactic Acid 0.5 (0.5-2.0) mmol/L Calcium 9.3 (8.6-10.3) mg/dL Total Bilirubin 0.30 (0.2-1.0) mg/dL AST 22 (13-39) U/L ALT 19 (7-52) U/L Alkaline Phosphatase 70 (34-104) U/L C-Reactive Protein 5.91 (<8.01) mg/L Total Protein 6.6 (6.4-8.9) g/dL Albumin 3.6 (3.2-5.2) g/dL Globulin 3.0 (2-4) g/dL Albumin/Globulin Ratio 1.2 (1-3) Lipase 97 H (11.0-82.0) U/L Assess/Plan/Problems-Billing Assessment: - Patient Problems (1) Epigastric abdominal pain Current Visit: Yes Status: Acute Code(s): R10.13 - EPIGASTRIC PAIN SNOMED Code(s): 72228657 Comment: #Epigastric pain/tenderness: -Abd U/S: Suggestive of acute acalculus cholecystitis; moderate dilation of CBD measuring 9.2 mm; incompletely characterized 2.4 x 2.2 x 2.1 cm hypoechoic lesion in left hepatic lobe adjacent to the pancreas w/c was not appreciated on recent CT of the abd -D/W Dr. Kaplan and per his conversation w/radiologist, left hepatic hypoechoic lesion is likely due to an artifact somewhere in the duodenal area -D/W Dr. Graff and will await recommendations and input post evaluation tomorrow -Continue PRN pain meds -Awaiting MRCP -Will advance diet to low fat, divided into 5-6 small meals per day per Dr. Kaplan (2) Hepatic lesion Current Visit: Yes Status: Acute Code(s): K76.9 - LIVER DISEASE, UNSPECIFIED SNOMED Code(s): 036402794 Comment: #Hypoechoic hepatic lesion: -Possibly an artifact; please see discussion above -Tumor markers, AFP and CEA sent -D/W Dr. Kaplan (3) Dental abscess Current Visit: Yes Status: Acute Code(s): K04.7 - PERIAPICAL ABSCESS WITHOUT SINUS SNOMED Code(s): 214469419 Comment: -Continue Augmentin -Pt already on schedule for tooth extraction as outpatient w/dentist and will defer Status and Disposition: -As above
[2019-03-17] MEDS ORDERED: Enoxaparin(*) 40 MG/0.4 ML SYR SUBCUT SCH (20:00)
[2019-03-17 22:12] LABS: Carcinoembryonic Antigen 2.1 ng/mL (0.1-5.0)
[2019-03-18] MEDS: HYDROmorphone INJ1* 1 MG/ML SYRINGE IV SLOW PU PRN ×3 (03:59→16:06)
[2019-03-18 06:43] LABS: Hematocrit 34 % (42-52); Hemoglobin 11.4 g/dL (14.0-18.0); Mean Corpuscular HGB Conc 33 g/dL (31-36); Mean Corpuscular Hemoglobin 33 pg (27-31); Mean Corpuscular Volume 98 fL (80-94); Mean Platelet Volume 7.4 fL (7.4-10.4); Platelet Count 646 10^3/uL (150-450); Red Blood Count 3.48 10^6 /uL (4.18-5.48); Red Cell Distribution Width 18 % (10.5-15); White Blood Count 7.8 10^3/uL (3.5-10.8)
[2019-03-18 06:54] LABS: Albumin 3.2 g/dL (3.2-5.2); Albumin/Globulin Ratio 1.2 (1-3); BUN/Creatinine Ratio 17.9 (8-20); Calcium 8.9 mg/dL (8.6-10.3); EGFR African American 134.8 (>60); EGFR Non-African American 111.4 (>60); Globulin 2.7 g/dL (2-4); Magnesium 1.7 mg/dL (1.9-2.7); Phosphorus 4.5 mg/dL (2.5-5.0); Potassium 3.9 mmol/L (3.5-5.0); Total Bilirubin 0.2 mg/dL (0.2-1.0); Total Protein 5.9 g/dL (6.4-8.9)
[2019-03-18] MEDS: Amoxicillin/Clavulanate TAB* 875 MG PO SCH (08:00)
[2019-03-18] MEDS: Vitamin B Complex TAB PO SCH (08:00)
[2019-03-18] MEDS: Pantoprazole TAB * 40 MG TAB PO SCH (08:00)
[2019-03-18] MEDS: Morphine INJ* 2 MG/ML 1 ML SYRINGE (TWO MG - NEW SYRINGE VERSION) IV PRN ×2 (08:00→13:03)
--- NOTE | 2019-03-18 13:05 | PN ---
Progress Note - Progress Note Date of Service: 03/18/19 Note: Brief Surgery Note (full consult dictated): S: 38 yo male admitted w/ abd pain, after recent admission for acute pancreatitis. He is feeling better this am and did have something to eat both last night and this a.m. He denies N/V but does admit to some fullness, early satiety. Still having pain requiring morphine 2 mg alt w/ dilaudid. O: Vital Signs - 8 hr 03/18/19 03/18/19 03/18/19 06:01 07:55 07:59 Temperature 98.8 F Pulse Rate 91 68 Respiratory 16 18 Rate Blood Pressure 103/68 (mmHg) O2 Sat by Pulse 96 Oximetry 03/18/19 03/18/19 03/18/19 08:00 09:19 10:07 Temperature Pulse Rate Respiratory 18 16 18 Rate Blood Pressure (mmHg) O2 Sat by Pulse Oximetry 03/18/19 03/18/19 03/18/19 11:00 11:29 13:03 Temperature 97.8 F Pulse Rate 85 Respiratory 16 18 16 Rate Blood Pressure 109/73 (mmHg) O2 Sat by Pulse 96 Oximetry Intake and Output Last 24 Hours 03/16/19 03/17/19 03/18/19 03/19/19 06:59 06:59 06:59 06:59 Intake Total 384 946 0 Balance 384 946 0 Weight 135 lb 14.4 oz 135 lb 14.4 oz Intake: IV Fluids 384 546 LR 384 546 Oral 0 400 0 Other: Estimated Void Large Date of Last Bowel [id number] Movement # Bowel Movements 0 # Voids 0 1 Heart: reg Lungs: clear Abd: +BS; soft; moderate tenderness across epigastrium; lower abd nontender; no masses organomegaly; neg Rocha's sign Labs: Laboratory Tests 03/16/19 03/18/19 03/18/19 19:24 06:01 06:01 WBC 7.8 Hgb 11.4 L Glucose 135 H Magnesium 1.7 L Total Bilirubin 0.20 AST 28 ALT 24 Alkaline Phosphatase 72 C-Reactive Protein 5.91 Lipase 97 H Imaging: was reviewed personally; MRCP shows unremarkable GB and no CBD filling defects. There is a suggestion of pancreatic pseudocysts. A: pancreatitis; no convincing evidence by hx or exam of acalculous cholecystitis P: med mgmt per medicine and GI; recall surgery prn
[2019-03-18 15:35] VITALS: BP 109/63
--- NOTE | 2019-03-19 00:39 | CONS ---
CC: Dr. Zi Kaplan; Dr. Debbie Elena * SURGICAL CONSULTATION NOTE: DATE OF CONSULT: 03/18/19 ATTENDING SURGEON: Dr. Maurilio Graff. CHIEF COMPLAINT: Possible acalculous cholecystitis. HISTORY OF PRESENT ILLNESS: This is a 38-year-old male recently admitted for alcohol-related pancreatitis. He was discharged 6 days ago and had been doing fairly well, though with ongoing symptoms of upper abdominal pressure and early satiety. At the afternoon of 03/17/19, he had a cheese burger to eat and thereafter experienced more severe upper abdominal pain. He describes this as being in the mid epigastrium with radiation primarily to the left side. He denies nausea or vomiting. An ultrasound was obtained, which showed minimal gallbladder wall thickening and pericholecystic fluid, but no stones. The common bile duct was dilated and measuring 9.2 mm and a positive sonographic Rocha sign was noted. The radiologist suggested that these findings could be accounted for by acute acalculous cholecystitis. A subsequent MRCP showed an unremarkable gallbladder, common bile duct measuring up to 11.4 mm and peripancreatic edema consistent with pancreatitis as well as a couple of cystic- appearing lesions in the head of the pancreas, possibly consistent with pseudocyst. The patient was able to eat last night and again this morning without any exacerbation of his pain and he is feeling better today than last evening. The patient was seen at approximately 11 a.m. on 03/18/19. At that time, he was still requiring parenteral pain medication, but only 2 mg Morphine alternating with 0.5 mg of Dilaudid. PAST MEDICAL HISTORY: 1. Pancreatitis with episodes in July 2018 and again admitted from 03/02/19 to 03/10/19. 2. History of alcohol abuse, though he states that he has not had any alcohol in the past week and intends to abstain completely. 3. He has a history of tobacco use. 4. Hypertension. 5. Recent dental abscess, awaiting dental extraction. 6. Asthma. MEDICATIONS: His medications are as outlined in his admission history and physical, includin. Lisinopril. 2. Pantoprazole. 3. Augmentin. 4. Albuterol. 5. Vitamin B complex. ALLERGIES: None known. FAMILY HISTORY AND SOCIAL HISTORY AND REVIEW OF SYSTEMS: Family history and social history as well as any additional review of systems are as per his admission history and physical and are not repeated here. PHYSICAL EXAM: He has been afebrile. His other vital signs are stable. General: Well-nourished, well-developed male, in no acute distress. He appears comfortable. Skin: Warm and dry. No suspicious rashes or lesions noted. HEENT : Pupils equal, round, and reactive. EOMs intact. Neck: No lymphadenopathy or thyromegaly. Heart: Regular rate and rhythm. No murmur noted. Lungs: Clear to auscultation. No rales or wheezes. Abdomen: Bowel sounds present. Abdomen is slightly firm and with mild to moderate tenderness across the upper abdomen with tenderness in both right and left upper quadrants. There is negative Rocha sign. There is no guarding or rigidity. The remainder of the abdomen is soft and nontender. DIAGNOSTIC STUDIES/LAB DATA: Imaging as noted above in the HPI. Laboratory notable for white blood cell count of 11.6 on admission and 7.8 this morning. Hemoglobin this morning 11.4. Lipase on admission 97, not repeated. Glucose on admission 123, repeat today 135. His calcium has been normal as well as his other electrolytes. His liver function tests have been normal. CRP on admission was 5.91. IMPRESSION: Pancreatitis, alcohol related. There does not appear to be any indication by history or exam that he is experiencing acute acalculous cholecystitis. PLAN: The case was discussed with Dr. Graff. It was not felt indicated to obtain a HIDA scan to confirm our impression. The patient may be managed medically and by GI for his pancreatitis. Please recall if there are any other changes or concerns. CAMELIA MASON [id number]/[facility] #: [id number] MTDShaka
--- NOTE | 2019-03-20 23:49 | DS ---
CC: Dr. Zi Kaplan; Dr. Graff; Dr. Debbie Elena* DISCHARGE SUMMARY: DATE OF ADMISSION: 03/17/19 DATE OF DISCHARGE: 03/18/19 FINAL DISCHARGE DIAGNOSES: 1. Subacute pancreatitis. 2. Hypertension. 3. Gastroesophageal reflux disease. DISCHARGE DISPOSITION: Home. DISCHARGE CONDITION: Stable. HOSPITAL COURSE: The patient presented to [facility] on 03/17/19 for epigastric and right upper quadrant pain with known history of alcohol abuse. He has been in remission since his last hospitalization where he was hospitalized from 03/02/19 and discharged on 03/10/19 due to alcoholic acute pancreatitis. The patient has been doing fairly well. He has been sustaining away from alcohol; however, on the day of admission, he stated that around 2:30 in the afternoon, he started having some epigastric pain, so he went to [facility], he had a cheese burger which did not seem to help his pain. His abdominal pain got worse. He was very concerned. Therefore, he came to the emergency room. There was no fever or chills. He was still taking antibiotics for a dental abscess. In that regard and given his prior history, there was concern about acalculous cholecystitis. Therefore, he was advised to be admitted. The patient was admitted to the medical service and he had surgery and GI consultation while inpatient. In the emergency room, he had a white count of 11,000, platelets of 710 with normal lipase and amylase. Ultrasound of the gallbladder, which was performed was suggestive of acute acalculous cholecystitis with moderate common bile duct dilation up to 9.2 mm with a hypoechoic lesion into the left hepatic lobe adjacent to the pancreas. The patient was placed under medicine service, started on IV fluids, kept n.p.o., and surgery and GI consults were requested. The patient was seen by GI, Dr. Zi Kaplan, and his recommendation was to pursue MRCP and resume diet and avoid fatty intake. MRCP was performed on 03/17 and the result showed no abnormal filling defect in the biliary tree. There was intrahepatic and extrahepatic biliary duct dilation with peripancreatic edema indicating pancreatitis with a systic appearing lesion on the pancreatic head. Also, he was seen by Surgery and the recommendation was deferred to Medicine and GI and there was no surgical intervention. The patient was seen by me as initial encounter on 03/18/19. He was examined. He was doing fairly well. He tolerated diet well. He stated that his pain has subsided significantly. Looking at the consultation and the MRI with the ultrasound findings, I do think that his symptoms coincide with subacute pancreatitis, rather than acute, as he was still recovering from his initial attack. Therefore, I deemed him stable for discharge and to continue the followup appointment as previously indicated in his previous discharge. Therefore, the patient was deemed stable to be discharged home with instruction as below. PHYSICAL EXAMINATION: His temperature was 97.9, pulse 73, respiratory rate 18, satting 98%, blood pressure 109/63. General: He is awake, alert, and oriented , in no distress. Head and neck: Normocephalic, atraumatic. Lungs: Clear to auscultation. Cardiovascular: S1, S2, regular rate and rhythm. Abdomen: Positive bowel sounds. Soft, mildly tender, no rebound or guarding. Extremities: No pedal edema. DIAGNOSTIC STUDIES AND IMAGING: He had multiple blood work including CBC. White count was 11.6, down to 7.8 the following day; hemoglobin 11; hematocrit 34; platelets 646, down from 710, suggestive of acute phase reactant. Chemistry unremarkable with the exception of low magnesium, which was supplemented, at 1.7. AST was normal throughout at 28 and ALT 24 on discharge. His lipase was 97 on admission. Alpha fetoprotein 2.5. CEA 2.1. Urinalysis was negative and alcohol serum was less than 10. Imaging: He has an ultrasound of the gallbladder which at that time done in emergency room revealed finding suggestive of acute cholecystitis acalculous with dilation of the common bile duct at 9.2 mm and incompletely characterized 2.4 x 2.2 x 2.1 hypoechoic lesion in the left hepatic lobe adjacent to the pancreas that was not seen on the previous CTs. This was followed by MRCP, which was done on 03/17/19, which did not show any abnormality or filling defect in the biliary tree. There was intrahepatic and extrahepatic biliary duct prominence and peripancreatic edema indicating pancreatitis. CONSULTATIONS: 1. Dr. Zi Kaplan from GI. 2. Surgery, Dr. Stephan Graff. DISCHARGE MEDICATIONS: The patient was discharged on: 1. Inhaler albuterol. 2. Continue his Augmentin for his dental abscess. 3. Colace 100 daily. 4. Lisinopril 40 daily. 5. Protonix 40 daily. 6. Vitamin B complex. [id number]/[place] #: [id number] [facility]
== END 2019-03-18 16:20 | disposition home or self-care (01) | DRG 282 ==
LOC: ED 18:37 → MED 03-17 01:43
PROVIDERS: ADMIT Pediatrics; ATTEND Internal Medicine
DX: K85.20 Alcohol induced acute pancreatitis without necrosis or infection (principal); I10 Essential (primary) hypertension; K21.9 Gastro-esophageal reflux disease without esophagitis; F41.9 Anxiety disorder, unspecified; F17.210 Nicotine dependence, cigarettes, uncomplicated; R40.2362 Coma scale, best motor response, obeys commands, at arrival to emergency department; R40.2142 Coma scale, eyes open, spontaneous, at arrival to emergency department; R40.2252 Coma scale, best verbal response, oriented, at arrival to emergency department; J45.909 Unspecified asthma, uncomplicated; K76.9 Liver disease, unspecified; K04.7 Periapical abscess without sinus; Z83.3 Family history of diabetes mellitus; Z82.5 Family history of asthma and other chronic lower respiratory diseases; Z82.49 Family history of ischemic heart disease and other diseases of the circulatory system; Z72.89 Other problems related to lifestyle
CPT/HCPCS: 36415; 70030; 74181; 76376; 76705; 80053; 80320; 81003; 82105; 82378; 83605; 83690; 83735; 84100; 85025; 85027; 86140; 87086; 99284; A9270-GY; G0480; J1170; J1650; J2270; J2405